=== PATIENT | female | born 1955 | race Caucasian/White ===

== ENCOUNTER 2020-01-31 19:49 | Emergency (ER) | payer MEDICARE, MEDICAID ==
[2020-01-31] MEDS ORDERED: Acetaminophen 500 MG Tab PO ONE (20:02)
--- NOTE | 2020-01-31 20:09 | EDM.PDOC ---
ED HPI GENERAL MEDICAL PROBLEM - General Chief Complaint: Respiratory Problem Stated Complaint: VIA [facility]TH Time Seen by Provider: 01/31/20 20:07 Source of Information: Reports: Patient, EMS, Old Records, RN History Limitations: Reports: No Limitations - History of Present Illness INITIAL COMMENTS - FREE TEXT/NARRATIVE: 64 yo female presents with a fever, cough and SOB. EMS got a pulse ox reading of 80% so put her on 4 liters of oxygen per [place] en route. No recent acetaminophen. Lives alone. Has a pHx of COPD. Was tested for Covid 2 days ago in the clinic, test results are pending(now positive). Says her oximeter is usually in the 92- 95% range. Quit smoking 5 yrs ago. Onset: Gradual Duration: Day(s):, Getting Worse Location: Reports: Chest, Generalized Quality: Reports: Dull Severity: Moderate Improves with: Reports: Medication Worsens with: Reports: Other (time/med wearing off) Context: Reports: Other (See HPI) Associated Symptoms: Reports: Cough, Fever/Chills, Malaise, Shortness of Breath Treatments HOT TAMALE MAN: Reports: See EMS Report, Other (see below) (none) Left Knee Pain Score (Numeric/FACES): 9 Left Middle Chest Pain Score (Numeric/FACES): 10 - Related Data Allergies Allergy/AdvReac Type Severity Reaction Status Date / Time codeine Allergy Drowsiness Verified 01/31/20 19:52 Home Meds: Home Meds Albuterol Sulfate [Proventil Hfa] 6.7 gm IH ASDIRECTED 01/31/20 [History] Albuterol [Ventolin 2 MG/5 ML] 0.4 mg PO ASDIRECTED 01/31/20 [History] Aspirin [Halfprin] 81 mg PO DAILY 01/31/20 [History] Budesonide/Formoterol [Symbicort 160-4.5 MCG] 4 puff INH BID 01/31/20 [History] Chlorthalidone 25 mg PO DAILY 01/31/20 [History] Escitalopram [Lexapro] 10 mg PO DAILY 01/31/20 [History] Levothyroxine Sodium [Synthroid] 125 mcg PO DAILY 01/31/20 [History] Potassium Chloride 10 meq PO BID #60 cap.er 01/31/20 [Rx] Past Medical History Cardiovascular History: Reports: Hypertension Respiratory History: Reports: COPD ETL INFORMATICA ARCHITECT History: Reports: Psychiatric History: Reports: Anxiety, Depression Endocrine/Metabolic History: Reports: Hypothyroidism - Past Surgical History Other Musculoskeletal Surgeries/Procedures:: L SHOULDER ROTATOR CUFF REPAIR ED ROS GENERAL - Review of Systems Review Of Systems: See Below Constitutional: Reports: Fever, Chills, Malaise HEENT: Reports: No Symptoms Respiratory: Reports: Shortness of Breath, Cough, Sputum (occasionally). Denies: Wheezing, Pleuritic Chest Pain, Hemoptysis Cardiovascular: Reports: Dyspnea on Exertion. Denies: Edema, Lightheadedness GI/Abdominal: Reports: No Symptoms : Reports: No Symptoms Musculoskeletal: Reports: No Symptoms Skin: Reports: No Symptoms Neurological: Reports: No Symptoms Psychiatric: Reports: No Symptoms ED EXAM, GENERAL - Physical Exam Exam: See Below Exam Limited By: No Limitations General Appearance: Alert, WD/WN, No Apparent Distress Eye Exam: Bilateral Eye: Normal Inspection Ears: Normal External Exam, Normal Canal, Hearing Grossly Normal Ear Exam: Bilateral Ear: Auricle Normal, Canal Normal Nose: Normal Inspection, No Blood Throat/Mouth: Normal Inspection, Normal Lips, Normal Oropharynx, Normal Voice, No Airway Compromise Head: Atraumatic, Normocephalic Neck: Normal Inspection Respiratory/Chest: No Respiratory Distress, Lungs Clear, Normal Breath Sounds, No Accessory Muscle Use Cardiovascular: Regular Rate, Rhythm, No Edema GI/Abdominal: Soft, Non-Tender Back Exam: Normal Inspection. No: CVA Tenderness (R), CVA Tenderness (L) Extremities: Normal Inspection, Normal Range of Motion, Non-Tender, No Pedal Edema Neurological: Alert, Oriented, CN II-XII Intact, Normal Cognition, No Motor/Sensory Deficits Psychiatric: Normal Affect, Normal Mood Skin Exam: Warm, Dry, Intact, Normal Color, No Rash Course - Vital Signs Last Recorded V/S: Last Vital Signs Temp 39.7 C H 01/31/20 19:55 Pulse 92 01/31/20 19:55 Resp 18 01/31/20 19:55 BP 132/73 01/31/20 19:55 Pulse Ox 98 01/31/20 19:55 - Orders/Labs/Meds Orders: Active Orders 24 hr Category Date Time Status UA W/MICROSCOPIC [URIN] Stat Lab 01/31/20 22:44 Ordered NS + KCl 20mEq/L [Normal Saline with 20 mEq KCl] 1,000 Med 01/31/20 21:00 Active ml IV ASDIRECTED Medication Orders Potassium Chloride/Sodium Chloride (Normal Saline With 20 Meq Kcl) 1,000 mls @ 1,000 mls/hr IV ASDIRECTED CRIS Last Admin: 01/31/20 21:27 Dose: 1,000 mls/hr Documented by: EDNA Labs: Laboratory Tests 01/31/20 01/31/20 01/31/20 Range/Units 20:26 20:26 20:26 WBC 8.2 (4.5-11.0) K/uL RBC 5.23 (3.30-5.50) M/uL Hgb 13.9 (12.0-15.0) g/dL Hct 45.2 (36.0-48.0) % MCV 86 (80-98) fL MCH 27 (27-31) pg MCHC 31 L (32-36) % Plt Count 170 (150-400) K/uL D-Dimer, Quantitative 324 (0.0-400.0) ng/mL Sodium 136 L (140-148) mmol/L Potassium 2.9 L* (3.6-5.2) mmol/L Chloride 95 L (100-108) mmol/L Carbon Dioxide 34 H (21-32) mmol/L Anion Gap 9.9 (5.0-14.0) mmol/L BUN 15 (7-18) mg/dL Creatinine 0.9 (0.6-1.0) mg/dL Est Cr Clr Drug Dosing 48.63 mL/min Estimated GFR (MDRD) > 60 (>60) Glucose 121 H (74-106) mg/dL Calcium 8.8 (8.5-10.1) mg/dL Magnesium (1.8-2.4) mg/dL Lactate Dehydrogenase 229 (82-234) U/L C-Reactive Protein 5.37 H (0.0-0.3) mg/dL 01/31/20 Range/Units 20:51 WBC (4.5-11.0) K/uL RBC (3.30-5.50) M/uL Hgb (12.0-15.0) g/dL Hct (36.0-48.0) % MCV (80-98) fL MCH (27-31) pg MCHC (32-36) % Plt Count (150-400) K/uL D-Dimer, Quantitative (0.0-400.0) ng/mL Sodium (140-148) mmol/L Potassium (3.6-5.2) mmol/L Chloride (100-108) mmol/L Carbon Dioxide (21-32) mmol/L Anion Gap (5.0-14.0) mmol/L BUN (7-18) mg/dL Creatinine (0.6-1.0) mg/dL Est Cr Clr Drug Dosing mL/min Estimated GFR (MDRD) (>60) Glucose (74-106) mg/dL Calcium (8.5-10.1) mg/dL Magnesium 1.8 (1.8-2.4) mg/dL Lactate Dehydrogenase (82-234) U/L C-Reactive Protein (0.0-0.3) mg/dL Meds: Medications Generic Name Dose Route Start Last Admin Trade Name Freq PRN Reason Stop Dose Admin Potassium Chloride/Sodium Chloride 1,000 mls @ 1,000 mls/hr 01/31/20 21:00 01/31/20 21:27 Normal Saline With 20 Meq Kcl IV 1,000 mls/hr ASDIRECTED CRIS Administration Discontinued Medications Generic Name Dose Route Start Last Admin Trade Name Freq PRN Reason Stop Dose Admin Acetaminophen 1,000 mg 01/31/20 20:02 01/31/20 20:23 Tylenol Extra Strength PO 01/31/20 20:03 1,000 mg ONETIME ONE Administration Aspirin 325 mg 01/31/20 21:07 01/31/20 21:38 Ecotrin PO 01/31/20 21:08 325 mg ONETIME ONE Administration Potassium Chloride 40 meq 01/31/20 20:48 01/31/20 21:29 Potassium Chloride PO 01/31/20 20:49 40 meq ONETIME ONE Administration Departure - Departure Time of Disposition: 22:55 Disposition: Home, Self-Care 01 Condition: Fair Clinical Impression: COVID-19, Hypokalemia, Exercise hypoxemia - Discharge Information *PRESCRIPTION DRUG MONITORING PROGRAM REVIEWED*: Not Applicable *COPY OF PRESCRIPTION DRUG MONITORING REPORT IN PATIENT SEEMA: Not Applicable Prescriptions: Potassium Chloride 10 meq PO BID #60 cap.er Instructions: Potassium Content of Foods, Prevent the Spread of COVID-19 if You Are Sick - CDC, COVID-19 Frequently Asked Questions Referrals: PCP,None [Primary Care Provider] - Forms: ED Department Discharge Additional Instructions: Take the potassium prescription as directed that was sent to [facility] for you. Take acetaminophen 1000 mg every 6 hrs for pain and fever control. Drink ample fluids to prevent dehydration. Isolate yourself and wash your hands often to prevent spread. Consider taking vitamin D 4000 IU daily, and Zinc 25-50 mg daily to boost your immunity. Add an enteric coated aspirin daily to prevent blood clots from Covid. Recheck in the clinic in a couple weeks to make sure your potassium level is better. We will try to get you home oxygen sometime tomorrow, use it as directed. Stay in touch with your provider regarding your condition. Sepsis Event Note (ED) - Evaluation Sepsis Screening Result: Possible Sepsis Risk - Focused Exam Vital Signs: Vital Signs Temp Pulse Resp BP Pulse Ox 01/31/20 19:55 39.7 C H 92 18 132/73 98 - My Orders Last 24 Hours: My Active Orders 01/31/20 21:00 NS + KCl 20mEq/L [Normal Saline with 20 mEq KCl] 1,000 ml IV ASDIRECTED 01/31/20 22:44 UA W/MICROSCOPIC [URIN] Stat - Assessment/Plan Last 24 Hours: My Active Orders 01/31/20 21:00 NS + KCl 20mEq/L [Normal Saline with 20 mEq KCl] 1,000 ml IV ASDIRECTED 01/31/20 22:44 UA W/MICROSCOPIC [URIN] Stat
[2020-01-31] MEDS ORDERED: Potassium Chloride 10 MEQ Cap.ER PO ONE (20:48)
[2020-01-31] MEDS ORDERED: NS + KCl 20mEq/L 1,000 ML IV SCH (21:00)
[2020-01-31] MEDS ORDERED: Aspirin 325 MG Tab.EC PO ONE (21:07)
== END 2020-01-31 23:40 | disposition home or self-care (01) ==
LOC: MERGE 19:49 → JP.ED 19:49
DX: U07.1 COVID-19 (principal); E87.6 Hypokalemia; R09.02 Hypoxemia; I10 Essential (primary) hypertension; F41.9 Anxiety disorder, unspecified; F32.9 Major depressive disorder, single episode, unspecified; E03.9 Hypothyroidism, unspecified; Z88.5 Allergy status to narcotic agent; Z79.82 Long term (current) use of aspirin; Z79.899 Other long term (current) drug therapy
CPT/HCPCS: 36415; 80048; 81001; 83615; 83735; 85027; 85379; 86140; 99284; A9270; J3480

== ENCOUNTER 2020-02-26 23:12 | Inpatient (IN) | payer MEDICARE, MEDICAID ==
[2020-02-26] MEDS ORDERED: HYDROmorphone 0.5 MG/0.5 ML Syringe IVPUSH ONE (23:36)
[2020-02-26] MEDS ORDERED: Ondansetron 4 MG/2 ML SDV IVPUSH ONE (23:36)
--- NOTE | 2020-02-26 23:41 | EDM.PDOC ---
ED HPI GENERAL MEDICAL PROBLEM - General Chief Complaint: Abdominal Pain Stated Complaint: MEDICAL VIA [facility] Time Seen by Provider: 02/26/20 23:37 Source of Information: Reports: Patient History Limitations: Reports: No Limitations - History of Present Illness INITIAL COMMENTS - FREE TEXT/NARRATIVE: pt arrived with upper abomanal pain which started 2 days ago. She had a large emesis just prior to the ambulance arriving. She has had urinary frequency but not actual burning. Onset: Gradual, Other ( last 2 days. She did have Covid 19 about 1 month ago. ) Duration: Day(s): Location: Reports: Abdomen Associated Symptoms: Reports: Loss of Appetite, Nausea/Vomiting, Weakness back Pain Score (Numeric/FACES): 8 - Related Data Allergies Allergy/AdvReac Type Severity Reaction Status Date / Time codeine Allergy Drowsiness Verified 02/26/20 23:17 Home Meds: Home Meds Albuterol Sulfate [Proventil Hfa] 6.7 gm IH TID 01/31/20 [History] Albuterol [Ventolin 2 MG/5 ML] 0.4 mg PO ASDIRECTED PRN 01/31/20 [History] Aspirin [Halfprin] 81 mg PO DAILY 01/31/20 [History] Budesonide/Formoterol [Symbicort 160-4.5 MCG] 4 puff INH BID 01/31/20 [History] Escitalopram [Lexapro] 10 mg PO DAILY 01/31/20 [History] Levothyroxine Sodium [Synthroid] 125 mcg PO DAILY 01/31/20 [History] lisinopriL [Lisinopril] 10 mg PO DAILY 02/26/20 [History] Past Medical History HEENT History: Reports: Impaired Vision Cardiovascular History: Reports: Hypertension Respiratory History: Reports: COPD Gastrointestinal History: Reports: GERD IOS ARCHITECT History: Reports: Psychiatric History: Reports: Anxiety, Depression Endocrine/Metabolic History: Reports: Hypothyroidism, Obesity/BMI 30+ - Infectious Disease History Infectious Disease History: Reports: Chicken Pox, Novel Coronavirus - Past Surgical History GI Surgical History: Reports: Colonoscopy Other Musculoskeletal Surgeries/Procedures:: L SHOULDER ROTATOR CUFF REPAIR Social & Family History - Tobacco Use Tobacco Use Status *Q: Former Tobacco User Used Tobacco, but Quit: Yes Month/Year Tobacco Last Used: 2014 - Caffeine Use Caffeine Use: Reports: Coffee - Recreational Drug Use Recreational Drug Use: No ED ROS GENERAL - Review of Systems Review Of Systems: See Below Constitutional: Reports: Weakness, Decreased Appetite HEENT: Reports: No Symptoms Respiratory: Reports: No Symptoms Cardiovascular: Reports: No Symptoms Endocrine: Reports: Fatigue GI/Abdominal: Reports: Abdominal Pain, Decreased Appetite, Nausea, Vomiting : Reports: Frequency Musculoskeletal: Reports: No Symptoms Skin: Reports: No Symptoms Neurological: Reports: No Symptoms ED EXAM, GI/ABD - Physical Exam Exam: See Below Text/Narrative:: pt arrived with a 2 day history of upper abdomanal pain. This became very severe tonight and she called the ambulance. She is slightly more comfortable at this point. She did vomit just prior to the ambulance getting there. Exam Limited By: No Limitations General Appearance: Alert, Anxious, Moderate Distress Ears: Normal TMs Nose: Normal Inspection Throat/Mouth: Other (mucouis membranes appear dry. ) Head: Atraumatic Neck: Normal Inspection Respiratory/Chest: No Respiratory Distress Cardiovascular: Regular Rate, Rhythm GI/Abdominal Exam: Other (pt is very tender in the upper abdoman,. ) (Female) Exam: Deferred Rectal (Female) Exam: Deferred Back Exam: Normal Inspection Extremities: Normal Inspection Neurological: Alert, Oriented, Normal Cognition Psychiatric: Anxious Course - Vital Signs Last Recorded V/S: Last Vital Signs Temp 36.4 C 02/26/20 23:14 Pulse 98 02/26/20 23:14 Resp 20 02/26/20 23:14 BP 124/57 L 02/26/20 23:14 Pulse Ox 94 L 02/26/20 23:14 - Orders/Labs/Meds Orders: Active Orders 24 hr Category Date Time Status Abdomen Ltd [US] Stat Exams 02/27/20 00:20 Ordered Chest 1V Frontal [CR] Stat Exams 02/27/20 00:23 Taken CORONAVIRUS COVID-19 [facility] [MOLEC] Stat Lab 02/27/20 01:03 Received Sodium Chloride 0.9% [Normal Saline] 1,000 ml Med 02/26/20 23:45 Active IV ASDIRECTED Medication Orders Sodium Chloride (Normal Saline) 1,000 mls @ 500 mls/hr IV ASDIRECTED CRIS Last Admin: 02/26/20 23:53 Dose: 500 mls/hr Documented by: KATHERINE Labs: Laboratory Tests 02/26/20 02/26/20 02/26/20 Range/Units 23:35 23:56 23:56 WBC 13.4 H (4.5-11.0) K/uL RBC 5.24 (3.30-5.50) M/uL Hgb 14.5 (12.0-15.0) g/dL Hct 46.4 (36.0-48.0) % MCV 89 (80-98) fL MCH 28 (27-31) pg MCHC 31 L (32-36) % Plt Count 220 (150-400) K/uL Neut % (Auto) 87 H (36-66) % Lymph % (Auto) 6 L (24-44) % [place] % (Auto) 6 (2-6) % Eos % (Auto) 1 L (2-4) % Baso % (Auto) 0 (0-1) % PT (9.5-12.0) sec INR (0.80-1.20) Sodium 138 L (140-148) mmol/L Potassium 3.4 L (3.6-5.2) mmol/L Chloride 96 L (100-108) mmol/L Carbon Dioxide 33 H (21-32) mmol/L Anion Gap 12.4 (5.0-14.0) mmol/L BUN 16 (7-18) mg/dL Creatinine 0.9 (0.6-1.0) mg/dL Est Cr Clr Drug Dosing 48.63 mL/min Estimated GFR (MDRD) > 60 (>60) Glucose 157 H (74-106) mg/dL Calcium 9.4 (8.5-10.1) mg/dL Total Bilirubin 2.2 H (0.2-1.0) mg/dL AST 840 H (15-37) U/L ALT 955 H (12-78) U/L Alkaline Phosphatase 228 H (46-116) U/L Total Protein 8.3 H (6.4-8.2) g/dL Albumin 3.9 (3.4-5.0) g/dL Globulin 4.4 H (2.3-3.5) g/dL Albumin/Globulin Ratio 0.9 L (1.2-2.2) Amylase 1082 H (25-115) U/L Lipase 26113 H (73-393) U/L Urine Color (YELLOW) Urine Appearance (CLEAR) Urine pH (5.0-8.0) Ur Specific [place] (1.008-1.030) Urine Protein (NEGATIVE) mg/dL Urine Glucose (UA) (NEGATIVE) mg/dL Urine Ketones (NEGATIVE) mg/dL Urine Occult Blood (NEGATIVE) Urine Nitrite (NEGATIVE) Urine Bilirubin (NEGATIVE) Urine Urobilinogen (0.2-1.0) EU/dL Ur Leukocyte Esterase (NEGATIVE) Urine RBC (0-5) Urine WBC (0-5) Ur Epithelial Cells Amorphous Sediment Urine Bacteria Urine Mucus 02/27/20 02/27/20 Range/Units 00:15 00:59 WBC (4.5-11.0) K/uL RBC (3.30-5.50) M/uL Hgb (12.0-15.0) g/dL Hct (36.0-48.0) % MCV (80-98) fL MCH (27-31) pg MCHC (32-36) % Plt Count (150-400) K/uL Neut % (Auto) (36-66) % Lymph % (Auto) (24-44) % [place] % (Auto) (2-6) % Eos % (Auto) (2-4) % Baso % (Auto) (0-1) % PT 10.7 (9.5-12.0) sec INR 0.98 (0.80-1.20) Sodium (140-148) mmol/L Potassium (3.6-5.2) mmol/L Chloride (100-108) mmol/L Carbon Dioxide (21-32) mmol/L Anion Gap (5.0-14.0) mmol/L BUN (7-18) mg/dL Creatinine (0.6-1.0) mg/dL Est Cr Clr Drug Dosing mL/min Estimated GFR (MDRD) (>60) Glucose (74-106) mg/dL Calcium (8.5-10.1) mg/dL Total Bilirubin (0.2-1.0) mg/dL AST (15-37) U/L ALT (12-78) U/L Alkaline Phosphatase (46-116) U/L Total Protein (6.4-8.2) g/dL Albumin (3.4-5.0) g/dL Globulin (2.3-3.5) g/dL Albumin/Globulin Ratio (1.2-2.2) Amylase (25-115) U/L Lipase (73-393) U/L Urine Color [place] A (YELLOW) Urine Appearance Clear (CLEAR) Urine pH 7.0 (5.0-8.0) Ur Specific [place] 1.025 (1.008-1.030) Urine Protein Negative (NEGATIVE) mg/dL Urine Glucose (UA) Negative (NEGATIVE) mg/dL Urine Ketones Negative (NEGATIVE) mg/dL Urine Occult Blood Negative (NEGATIVE) Urine Nitrite Negative (NEGATIVE) Urine Bilirubin Negative (NEGATIVE) Urine Urobilinogen 0.2 (0.2-1.0) EU/dL Ur Leukocyte Esterase Trace H (NEGATIVE) Urine RBC Not seen (0-5) Urine WBC 0-5 (0-5) Ur Epithelial Cells Many Amorphous Sediment Few Urine Bacteria Not seen Urine Mucus Not seen Meds: Medications Generic Name Dose Route Start Last Admin Trade Name Freq PRN Reason Stop Dose Admin Sodium Chloride 1,000 mls @ 500 mls/hr 02/26/20 23:45 02/26/20 23:53 Normal Saline IV 500 mls/hr ASDIRECTED CRIS Administration Discontinued Medications Generic Name Dose Route Start Last Admin Trade Name Freq PRN Reason Stop Dose Admin Hydromorphone HCl 0.5 mg 02/26/20 23:36 02/26/20 23:58 Dilaudid IVPUSH 02/26/20 23:37 0.5 mg ONETIME ONE Administration Ondansetron HCl 4 mg 02/26/20 23:36 02/26/20 23:56 Zofran IVPUSH 02/26/20 23:37 4 mg ONETIME ONE Administration - Re-Assessments/Exams Free Text/Narrative Re-Assessment/Exam: 02/27/20 01:09 pt has a markedly elevated lipase and her liver enzymes are very elevated. She is mildly jaundiced. pt has concentrated urine which does not look infected. She did have Covid 1 month ago. Pt had fluids started and she was given zoforan and dilaudid .5. 02/27/20 01:43 us shows some slug but no definite stones. Her common duct is not wide. 02/27/20 01:47 Departure - Departure Time of Disposition: 01:48 Disposition: Admitted As Inpatient 64 Condition: Fair Clinical Impression: Pancreatitis, Dehydration - Discharge Information Referrals: PCP,None [Primary Care Provider] - Forms: ED Department Discharge Care Plan Goals: admit to Dr Carr. Sepsis Event Note (ED) - Evaluation Sepsis Screening Result: No Definite Risk - Focused Exam Vital Signs: Vital Signs Temp Pulse Resp BP Pulse Ox 02/26/20 23:14 36.4 C 98 20 124/57 L 94 L - My Orders Last 24 Hours: My Active Orders 02/26/20 23:45 Sodium Chloride 0.9% [Normal Saline] 1,000 ml IV ASDIRECTED 02/27/20 00:20 Abdomen Ltd [US] Stat 02/27/20 00:23 Chest 1V Frontal [CR] Stat 02/27/20 01:03 CORONAVIRUS COVID-19 [facility] [[facility]LEC] Stat - Assessment/Plan Last 24 Hours: My Active Orders 02/26/20 23:45 Sodium Chloride 0.9% [Normal Saline] 1,000 ml IV ASDIRECTED 02/27/20 00:20 Abdomen Ltd [US] Stat 02/27/20 00:23 Chest 1V Frontal [CR] Stat 02/27/20 01:03 CORONAVIRUS COVID-19 [facility] [MOLEC] Stat
[2020-02-26] MEDS ORDERED: Sodium Chloride 0.9% 1,000 ML IV SCH (23:45)
--- NOTE | 2020-02-27 01:59 | CRLUS ---
INDICATION: Upper abdominal pain TECHNIQUE: Ultrasound abdomen limited. Sonographic images of the right upper quadrant were obtained using douglas-scale and color Doppler images. COMPARISON: None FINDINGS: Liver: Mild fatty infiltration of the liver is noted with focal fatty sparing near the gallbladder fossa. Gallbladder: Small amount of sludge is present within the gallbladder. The neck of the gallbladder is not well demonstrated. The gallbladder wall is normal in appearance. No pericholecystic fluid is present. No sonographic Mathias sign is present. Common bile duct: 5 mm. No intrahepatic biliary ductal dilatation seen. Pancreas: The visualized portions of the pancreatic head and body are normal in appearance. Right Kidney: 12 cm. No hydronephrosis or ureterectasis is seen. Vascular: The visualized abdominal aorta and IVC are unremarkable. The visualized portal vein is patent with normal anterograde flow. IMPRESSION: 1. Small amount of sludge is present within the gallbladder. Dictated by Praful Perez MD @ 02/27/2020 1:59:10 AM Dictated by: Praful Perez MD @ 02/27/2020 01:59:15 (Electronically Signed)
[2020-02-27] MEDS ORDERED: Sodium Chloride 0.9% 1,000 ML IV SCH (02:00)
[2020-02-27] MEDS ORDERED: Promethazine 12.5 MG in Sodium Chloride 0.9% 50 ML IV PRN (02:28)
[2020-02-27] MEDS ORDERED: Ondansetron 4 MG/2 ML SDV IV PRN (02:28)
[2020-02-27] MEDS ORDERED: Lactated Ringers 1,000 ML IV SCH (02:30)
[2020-02-27] MEDS ORDERED: HYDROmorphone 0.5 MG/0.5 ML Syringe IVPUSH PRN (02:41)
[2020-02-27] MEDS ORDERED: Albuterol/Ipratropium 4 GM Inhalation Spray INH PRN (02:45)
--- NOTE | 2020-02-27 02:54 | PCM.HP.2 ---
H&P History of Present Illness - General Date of Service: 02/27/20 Admit Problem/Dx: Admission Diagnosis/Problem Admission Diagnosis/Problem Pancreatitis Source of Information: Patient History Limitations: Reports: No Limitations - History of Present Illness Initial Comments - Free Text/Narative: Patient is a 64yo female with PMH of COPD, hypothyroidism, obesity, who was fo und to be COVID positive 1 month ago, who presents to the ED overnight for acute worsening abdominal pain with some vomiting. She has been having the pain since yesterday and it got worse to the point that she threw up and said that she could not stand it so she called 911. She was found by the ER to have acute pancreatitis. It is suspected to be gallstone pancreatitis but there was no obstructing stone seen on imaging. Patient says she does not drink alcohol and she has never had pancreatitis in the past. She says the dilaudid is helping her pain and her nausea has improved with fluids and zofran. She has been needing O2 since her initial positive test for covid. Onset of Symptoms: Reports: Sudden Symptom Onset Date: 02/26/20 Duration of Symptoms: Reports: Hour(s): Location: Reports: Abdomen Quality: Reports: Sharp, Stabbing Severity: Severe Improves with: Reports: Medication, Other (NPO) Worsens with: Reports: Eating Associated Symptoms: Reports: No Other Symptoms back Pain Score (Numeric/FACES): 8 - Related Data Allergies/Adverse Reactions: Allergies Allergy/AdvReac Type Severity Reaction Status Date / Time codeine Allergy Drowsiness Verified 02/26/20 23:17 Home Medications: Home Meds Albuterol Sulfate [Proventil Hfa] 6.7 gm IH TID 01/31/20 [History] Albuterol [Ventolin 2 MG/5 ML] 0.4 mg PO ASDIRECTED PRN 01/31/20 [History] Aspirin [Halfprin] 81 mg PO DAILY 01/31/20 [History] Budesonide/Formoterol [Symbicort 160-4.5 MCG] 4 puff INH BID 01/31/20 [History] Escitalopram [Lexapro] 10 mg PO DAILY 01/31/20 [History] Levothyroxine Sodium [Synthroid] 125 mcg PO DAILY 01/31/20 [History] lisinopriL [Lisinopril] 10 mg PO DAILY 02/26/20 [History] Past Medical History HEENT History: Reports: Impaired Vision Cardiovascular History: Reports: Hypertension Respiratory History: Reports: COPD Gastrointestinal History: Reports: GERD [employer] History: Reports: Psychiatric History: Reports: Anxiety, Depression Endocrine/Metabolic History: Reports: Hypothyroidism, Obesity/BMI 30+ - Infectious Disease History Infectious Disease History: Reports: Chicken Pox, Novel Coronavirus - Past Surgical History GI Surgical History: Reports: Colonoscopy Other Musculoskeletal Surgeries/Procedures:: L SHOULDER ROTATOR CUFF REPAIR Social & Family History - Tobacco Use Tobacco Use Status *Q: Former Tobacco User Used Tobacco, but Quit: Yes Month/Year Tobacco Last Used: 2014 - Caffeine Use Caffeine Use: Reports: Coffee - Recreational Drug Use Recreational Drug Use: No H&P Review of Systems - Review of Systems: Review Of Systems: See Below General: Reports: Decreased Appetite. Denies: Fever, Chills, Malaise, Weakness, Fatigue HEENT: Reports: No Symptoms Pulmonary: Reports: Shortness of Breath (COPD), Wheezing (COPD) Cardiovascular: Reports: No Symptoms Gastrointestinal: Reports: Abdominal Pain, Decreased Appetite Genitourinary: Reports: No Symptoms Musculoskeletal: Reports: No Symptoms Skin: Reports: No Symptoms Psychiatric: Reports: No Symptoms Neurological: Reports: No Symptoms Hematologic/Lymphatic: Reports: No Symptoms Immunologic: Reports: No Symptoms Exam - Exam Exam: See Below - Vital Signs Vital Signs: Last Vital Signs Temp 36.4 C 02/26/20 23:14 Pulse 104 H 02/27/20 02:12 Resp 18 02/27/20 02:12 BP 117/50 L 02/27/20 02:12 Pulse Ox 91 L 02/27/20 02:19 Weight: 96.162 kg - Exam General: Alert, Oriented, 4 HEENT: PERRLA, Hearing Intact, Mucosa Moist & [place], Nares Patent, Normal Nasal Septum, Posterior Pharynx Clear, Conjunctiva Clear, EOMI, EACs Clear, TMs Clear Neck: Supple, Trachea Midline, 2 Lungs: Clear to Auscultation, Normal Respiratory Effort Cardiovascular: Regular Rate, Regular Rhythm GI/Abdominal Exam: Normal Bowel Sounds, Soft, No Distention, Tender. No: Non- Tender (Female) Exam: Deferred Rectal (Female) Exam: Deferred Back Exam: Normal Inspection, Full Range of Motion, NT Extremities: Normal Inspection, Normal Range of Motion, Non-Tender, No Pedal Edema, Normal Capillary Refill Skin: Warm, Dry, Intact Neurological: Cranial Nerves Intact, Reflexes Equal Bilateral Neuro Extensive - Mental Status: Alert, Oriented x3, Normal Mood/Affect, Normal Cognition Neuro Extensive - Motor, Sensory, Reflexes: CN II-XII Intact, Normal Gait, Normal Reflexes Psychiatric: Alert, Normal Affect, Normal Mood - Patient Data Lab Results Last 24 hrs: Laboratory Results - last 24 hr 02/26/20 02/26/20 02/26/20 Range/Units 23:35 23:56 23:56 WBC 13.4 H (4.5-11.0) K/uL RBC 5.24 (3.30-5.50) M/uL Hgb 14.5 (12.0-15.0) g/dL Hct 46.4 (36.0-48.0) % MCV 89 (80-98) fL MCH 28 (27-31) pg MCHC 31 L (32-36) % Plt Count 220 (150-400) K/uL Neut % (Auto) 87 H (36-66) % Lymph % (Auto) 6 L (24-44) % [place] % (Auto) 6 (2-6) % Eos % (Auto) 1 L (2-4) % Baso % (Auto) 0 (0-1) % PT (9.5-12.0) sec INR (0.80-1.20) Sodium 138 L (140-148) mmol/L Potassium 3.4 L (3.6-5.2) mmol/L Chloride 96 L (100-108) mmol/L Carbon Dioxide 33 H (21-32) mmol/L Anion Gap 12.4 (5.0-14.0) mmol/L BUN 16 (7-18) mg/dL Creatinine 0.9 (0.6-1.0) mg/dL Est Cr Clr Drug Dosing 48.63 mL/min Estimated GFR (MDRD) > 60 (>60) Glucose 157 H (74-106) mg/dL Calcium 9.4 (8.5-10.1) mg/dL Total Bilirubin 2.2 H (0.2-1.0) mg/dL AST 840 H (15-37) U/L ALT 955 H (12-78) U/L Alkaline Phosphatase 228 H (46-116) U/L Total Protein 8.3 H (6.4-8.2) g/dL Albumin 3.9 (3.4-5.0) g/dL Globulin 4.4 H (2.3-3.5) g/dL Albumin/Globulin Ratio 0.9 L (1.2-2.2) Amylase 1082 H (25-115) U/L Lipase 24505 H (73-393) U/L Urine Color (YELLOW) Urine Appearance (CLEAR) Urine pH (5.0-8.0) Ur Specific [place] (1.008-1.030) Urine Protein (NEGATIVE) mg/dL Urine Glucose (UA) (NEGATIVE) mg/dL Urine Ketones (NEGATIVE) mg/dL Urine Occult Blood (NEGATIVE) Urine Nitrite (NEGATIVE) Urine Bilirubin (NEGATIVE) Urine Urobilinogen (0.2-1.0) EU/dL Ur Leukocyte Esterase (NEGATIVE) Urine RBC (0-5) Urine WBC (0-5) Ur Epithelial Cells Amorphous Sediment Urine Bacteria Urine Mucus SARS-CoV-2 RNA ([facility]HELLEY) (NEGATIVE) 02/27/20 02/27/20 02/27/20 Range/Units 00:15 00:59 01:03 WBC (4.5-11.0) K/uL RBC (3.30-5.50) M/uL Hgb (12.0-15.0) g/dL Hct (36.0-48.0) % MCV (80-98) fL MCH (27-31) pg MCHC (32-36) % Plt Count (150-400) K/uL Neut % (Auto) (36-66) % Lymph % (Auto) (24-44) % [place] % (Auto) (2-6) % Eos % (Auto) (2-4) % Baso % (Auto) (0-1) % PT 10.7 (9.5-12.0) sec INR 0.98 (0.80-1.20) Sodium (140-148) mmol/L Potassium (3.6-5.2) mmol/L Chloride (100-108) mmol/L Carbon Dioxide (21-32) mmol/L Anion Gap (5.0-14.0) mmol/L BUN (7-18) mg/dL Creatinine (0.6-1.0) mg/dL Est Cr Clr Drug Dosing mL/min Estimated GFR (MDRD) (>60) Glucose (74-106) mg/dL Calcium (8.5-10.1) mg/dL Total Bilirubin (0.2-1.0) mg/dL AST (15-37) U/L ALT (12-78) U/L Alkaline Phosphatase (46-116) U/L Total Protein (6.4-8.2) g/dL Albumin (3.4-5.0) g/dL Globulin (2.3-3.5) g/dL Albumin/Globulin Ratio (1.2-2.2) Amylase (25-115) U/L Lipase (73-393) U/L Urine Color [place] A (YELLOW) Urine Appearance Clear (CLEAR) Urine pH 7.0 (5.0-8.0) Ur Specific [place] 1.025 (1.008-1.030) Urine Protein Negative (NEGATIVE) mg/dL Urine Glucose (UA) Negative (NEGATIVE) mg/dL Urine Ketones Negative (NEGATIVE) mg/dL Urine Occult Blood Negative (NEGATIVE) Urine Nitrite Negative (NEGATIVE) Urine Bilirubin Negative (NEGATIVE) Urine Urobilinogen 0.2 (0.2-1.0) EU/dL Ur Leukocyte Esterase Trace H (NEGATIVE) Urine RBC Not seen (0-5) Urine WBC 0-5 (0-5) Ur Epithelial Cells Many Amorphous Sediment Few Urine Bacteria Not seen Urine Mucus Not seen SARS-CoV-2 RNA (SHELLEY) Positive H (NEGATIVE) Result Diagrams: 02/26/20 23:35 02/26/20 23:56 Sepsis Event Note - Evaluation Sepsis Screening Result: No Definite Risk - Focused Exam Vital Signs: Vital Signs Temp Pulse Resp BP Pulse Ox 02/27/20 02:19 91 L 02/27/20 02:12 104 H 18 117/50 L 84 L 02/26/20 23:14 36.4 C 98 20 124/57 L 94 L - Problem List (1) Pancreatitis SNOMED Code(s): 35268245 ICD Code: K85.90 - ACUTE PANCREATITIS WITHOUT NECROSIS OR INFECTION, UNSP Status: Acute Priority: High Current Visit: Yes Onset Date: ~02/27/20 Problem Details: Will keep patient NPO at this time. Will manage pain and run LR at 250cc/hr. Protonix ordered and repeat labs in AM. Patient may benefit from HIDA scan in AM if symptoms and labs are not improving. Patient's US shows sludge but no definitive obstruction. Patient alerted to the possibility of requiring transfer to ICU or outside facility if her symptoms worsen. Qualifiers: Chronicity: acute Pancreatitis type: biliary Acute pancreatitis complication: no infection or necrosis Qualified Code(s): K85.10 - Biliary a cute pancreatitis without necrosis or infection (2) COVID-19 SNOMED Code(s): 896909401 ICD Code: U07.1 - COVID-19 Status: Acute Priority: High Current Visit: Yes Onset Date: ~01/29/20 Problem Details: Patient is positive from a month ago and still requiring O2 to maintain sats above 90% at night (3) COPD (chronic obstructive pulmonary disease) SNOMED Code(s): 98939133 ICD Code: J44.9 - CHRONIC OBSTRUCTIVE PULMONARY DISEASE, UNSPECIFIED Status: Chronic Current Visit: Yes Problem Details: Will order inhalers for patient to treat COPD and COVID symptoms as needed Qualifiers: COPD type: chronic bronchitis Chronic bronchitis type: simple Qualified Code(s): J41.0 - Simple chronic bronchitis (4) Hypothyroidism SNOMED Code(s): 26164706 ICD Code: E03.9 - HYPOTHYROIDISM, UNSPECIFIED Status: Acute Current Visit: Yes Problem Details: Will restart her medication levothyroxine 125 Qualifiers: Hypothyroidism type: unspecified Qualified Code(s): E03.9 - Hypothyroidism, unspecified (5) Essential hypertension SNOMED Code(s): 15231364 ICD Code: I10 - ESSENTIAL (PRIMARY) HYPERTENSION Status: Chronic Current Visit: No Problem Details: Will continue lisinopril 10mg, patient's chlorthalidone DC'd due to hypokalemia Problem List Initiated/Reviewed/Updated: Yes Orders Last 24hrs: Active Orders 24 hr Category Date Time Status Patient Status [ADT] Routine ADT 02/27/20 02:28 Ordered Oxygen Therapy [RC] PRN Care 02/27/20 02:28 Ordered Pulse Oximetry [RC] CONTINUOUS Care 02/27/20 02:31 Ordered RT Post Treatment Assessment [RC] Click to Edit Care 02/27/20 02:45 Ordered VTE/DVT Education [RC] Per Unit Routine Care 02/27/20 02:28 Ordered Vital Signs [RC] Q4H Care 02/27/20 02:28 Ordered NPO Now [Nothing per Oral Now Diet] [DIET] Diet 02/27/20 Breakfast Ordered Chest 1V Frontal [CR] Stat Exams 02/27/20 00:23 Taken C-REACTIVE PROTEIN [CHEM] AM Lab 02/27/20 05:11 Ordered COMPREHENSIVE METABOLIC PN,CMP [CHEM] AM Lab 02/27/20 05:11 Ordered MAGNESIUM [CHEM] AM Lab 02/27/20 05:11 Ordered Albuterol [Ventolin HFA] Med 02/27/20 02:45 Ordered 2 gm INH Q2H PRN Albuterol/Ipratropium [Combivent Respimat] Med 02/27/20 02:45 Ordered 2 gm INH Q4H PRN Escitalopram [Lexapro] Med 02/27/20 09:00 Ordered 10 mg PO DAILY HYDROmorphone [Dilaudid] Med 02/27/20 02:41 Ordered 0.5 mg IVPUSH Q4H PRN Lactated Ringers [Ringers, Lactated] 1,000 ml Med 02/27/20 02:30 Ordered IV ASDIRECTED Levothyroxine [Synthroid] Med 02/27/20 07:30 Ordered 125 mcg PO ACBREAKFAST Mometasone/Formoterol [Dulera 200-5 MCG] Med 02/27/20 09:00 Ordered 2 puff IH BID Ondansetron [Zofran] Med 02/27/20 02:28 Ordered 4 mg IV Q4H PRN Pantoprazole [ProTONIX IV] Med 02/27/20 02:30 Ordered 40 mg IV Q12H Promethazine [Phenergan] 12.5 mg Med 02/27/20 02:28 Ordered Sodium Chloride 0.9% [Normal Saline] 50 ml IV Q6H Sodium Chloride 0.9% [Normal Saline] 1,000 ml Med 02/26/20 23:45 Active IV ASDIRECTED Sodium Chloride 0.9% [Normal Saline] 1,000 ml Med 02/27/20 02:00 Active IV ASDIRECTED lisinopriL [Prinivil] Med 02/27/20 09:00 Ordered 10 mg PO DAILY Resuscitation Status Routine Resus Stat 02/27/20 02:28 Ordered Medication Orders Albuterol (Ventolin Hfa) 2 gm INH Q2H PRN PRN Reason: Wheezing Albuterol/Ipratropium (Combivent Respimat) 2 gm INH Q4H PRN PRN Reason: Dyspnea Escitalopram Oxalate (Lexapro) 10 mg PO DAILY [facility] Hydromorphone HCl (Dilaudid) 0.5 mg IVPUSH Q4H PRN PRN Reason: Pain Sodium Chloride (Normal Saline) 1,000 mls @ 500 mls/hr IV ASDIRECTED [facility] Last Admin: 02/26/20 23:53 Dose: 500 mls/hr Documented by: KATHERINE Sodium Chloride (Normal Saline) 1,000 mls @ 500 mls/hr IV ASDIRECTED [facility] Last Admin: 02/27/20 02:03 Dose: 500 mls/hr Documented by: KATHERINE Promethazine HCl 12.5 mg/ (Sodium Chloride) 50.5 mls @ 200 mls/hr IV Q6H PRN PRN Reason: Nausea/Vomiting Lactated Ringer's (Ringers, Lactated) 1,000 mls @ 250 mls/hr IV ASDIRECTED [facility] Levothyroxine Sodium (Synthroid) 125 mcg PO ACBREAKFAST [facility] Lisinopril (Prinivil) 10 mg PO DAILY [facility] Mometasone Furoate/Formoterol Fumar (Dulera 200-5 Mcg) 2 puff IH BID [facility] Ondansetron HCl (Zofran) 4 mg IV Q4H PRN PRN Reason: Nausea/Vomiting Pantoprazole Sodium (Protonix Iv) 40 mg IV Q12H [facility] Resuscitation Status 02/27/20 02:28 Resuscitation Status Routine Resuscitation Status: Full Code Abbreviations used in this policy: *Cardiopulmonary Resuscitation (CPR) *Do Not Resuscitate (DNR) *Do Not Intubate (DNI) Code status categories recognized at [facility] 1. Full Code a. If a patient experiences cardiac or respiratory arrest, all resuscitation efforts (including CPR, defibrillation, and airway management) will be performed. b. Patients without a specific code status order other than Full Code will be assumed to be Full Code Status. Intubation CPR Defibrillation YES YES YES 2. DNR a. If there are changes in the patients' vital signs and condition, including respiratory arrest, treatment with medications and intubation, if indicated will be performed. b. If a patient experiences cardiac arrest, resuscitation efforts (CPR and Defibrillation) will not be performed. Intubation CPR Defibrillation YES NO NO 3. DNR/DNI a. If there are changes in the patient's vital signs and condition, including respiratory arrest, treatment with medications and noninvasive airway management/positive pressure ventilation, if indicated will be performed b. If a patient experiences a cardiac arrest, resuscitation efforts (including CPR, defibrillation and intubation) will not be performed. Intubation CPR Defibrillation NO NO NO 4. DNR/DNI/Comfort Measures a. All medical and nursing interventions will be for the sole purpose of providing pain/symptom management for the patient. b. If a patient experiences a cardiac or respiratory arrest, resuscitation efforts (including CPR, defibrillation and intubation) will not be performed. Intubation CPR Defibrillation No NO NO ACTIVE MED ORDERS Generic Name Dose Route Start Last Admin Trade Name Freq PRN Reason Stop Dose Admin Albuterol 0 gm 02/27/20 02:45 Ventolin Hfa INH Q2H PRN Wheezing Albuterol/Ipratropium 0 gm 02/27/20 02:45 Combivent Respimat INH Q4H PRN Dyspnea Escitalopram Oxalate 10 mg 02/27/20 09:00 Lexapro PO DAILY [facility] Hydromorphone HCl 0.5 mg 02/27/20 02:41 Dilaudid IVPUSH Q4H PRN Pain Sodium Chloride 1,000 mls @ 500 mls/hr 02/26/20 23:45 02/26/20 23:53 Normal Saline IV 500 mls/hr ASDIRECTED [facility] Administration Sodium Chloride 1,000 mls @ 500 mls/hr 02/27/20 02:00 02/27/20 02:03 Normal Saline IV 500 mls/hr ASDIRECTED [facility] Administration Promethazine HCl 12.5 mg/ 50.5 mls @ 200 mls/hr 02/27/20 02:28 Sodium Chloride IV Q6H PRN Nausea/Vomiting Lactated Ringer's 1,000 mls @ 250 mls/hr 02/27/20 02:30 Ringers, Lactated IV ASDIRECTED [facility] Levothyroxine Sodium 125 mcg 02/27/20 07:30 Synthroid PO ACBREAKFAST [facility] Lisinopril 10 mg 02/27/20 09:00 Prinivil PO DAILY [facility] Mometasone Furoate/Formoterol Fumar 2 puff 02/27/20 09:00 Dulera 200-5 Mcg IH BID [facility] Ondansetron HCl 4 mg 02/27/20 02:28 Zofran IV Q4H PRN Nausea/Vomiting Pantoprazole Sodium 40 mg 02/27/20 02:30 02/27/20 03:03 Protonix Iv IV 40 mg Q12H [facility] Administration ACTIVE NON-MED ORDERS/Dietary 02/27/20 Breakfast NPO Now [Nothing per Oral Now Diet] [DIET] NPO Level: Except Medications ACTIVE NON-MED ORDERS/Care 02/27/20 02:28 Oxygen Therapy [RC] PRN Maintain SpO2% greater than: 92 Oxygen Therapy Mode, Primary: Nasal Cannula Oxygen Flow Rate (L/min): 1.5 Oxygen Therapy Mode, Secondary: Nasal Cannula Flow Rate (L/min), Secondary: 4 VTE/DVT Education [RC] Per Unit Routine Vital Signs [RC] Q4H 02/27/20 02:31 Pulse Oximetry [RC] CONTINUOUS 02/27/20 02:45 RT Post Treatment Assessment [RC] Click to Edit ACTIVE NON-MED ORDERS/Orderable Interventions Education: VTE/DVT Topics Start: 02/27/20 02:28 Freq: Per Unit Routine Status: Active Protocol: Oxygen Therapy Start: 02/27/20 02:28 Freq: PRN Status: Active Protocol: Pulse Oximetry Start: 02/27/20 02:31 Freq: CONTINUOUS Status: Active Protocol: RT Post Treatment Assessment Start: 02/27/20 02:45 Text: Status: Active Freq: Click to Edit Protocol: Vital Signs Start: 02/27/20 02:28 Text: Click to edit a change in frequency and times. Status: Active Freq: Q4H Protocol: VS.PEDS ACTIVE NON-MED ORDERS/Imaging and X-Ray 02/27/20 00:23 Chest 1V Frontal [CR] Stat Is Patient : Mode Of Transportation: Portable Reason For Exam: copd, sob. ACTIVE NON-MED ORDERS/LAB 02/27/20 05:11 C-REACTIVE PROTEIN [CHEM] AM Comment: Specimen: Send someone from the department to collect CBC WITH AUTO DIFF [HEME] AM Specimen: Send someone from the department to collect Comment: COMPREHENSIVE METABOLIC PN,CMP [CHEM] AM Comment: Specimen: Send someone from the department to collect LIPASE [CHEM] AM Specimen: Send someone from the department to collect Comment: LIPID PANEL [CHEM] AM Specimen: Send someone from the department to collect Comment: MAGNESIUM [CHEM] AM Comment: Specimen: Send someone from the department to collect ACTIVE ORDERS/MEDS 02/26/20 23:45 Sodium Chloride 0.9% [Normal Saline] 1,000 ml IV ASDIRECTED 02/27/20 02:00 Sodium Chloride 0.9% [Normal Saline] 1,000 ml IV ASDIRECTED 02/27/20 02:28 Ondansetron [Zofran] 4 mg IV Q4H PRN Promethazine [Phenergan] 12.5 mg Sodium Chloride 0.9% [Normal Saline] 50 ml IV Q6H 02/27/20 02:30 Lactated Ringers [Ringers, Lactated] 1,000 ml IV ASDIRECTED Pantoprazole [ProTONIX IV] 40 mg IV Q12H 02/27/20 02:41 HYDROmorphone [Dilaudid] 0.5 mg IVPUSH Q4H PRN 02/27/20 02:45 Albuterol [Ventolin HFA] 2 gm INH Q2H PRN Albuterol/Ipratropium [Combivent Respimat] 2 gm INH Q4H PRN 02/27/20 07:30 Levothyroxine [Synthroid] 125 mcg PO ACBREAKFAST 02/27/20 09:00 Escitalopram [Lexapro] 10 mg PO DAILY Mometasone/Formoterol [Dulera 200-5 MCG] 2 puff IH BID lisinopriL [Prinivil] 10 mg PO DAILY ACTIVE NON-MED ORDERS/Other 02/27/20 02:28 Patient Status [ADT] Routine Patient Status: Admit to Inpatient Admission Diagnosis/Problem: Pancreatitis Reason for Admit: pancreatitis Nurse Unit Type: Medical-Surgical Location Preference: med-surg Admitting Physician: Sarah Carr Attending Physician: Roscoe Rodas Medicare 96 Hour Certification Statement: This Patient is Admitted for Inpatient Services and is Medically Appropriate and Meets Medical Necessity for Inpatient Admission. I Reasonably Expect the Patient will Require Inpatient Services that Span a Period of Over 2 Midnights. My Rationale for Medically Necessary Inpatient Care will be Found in the Admission History & Physical and Progress Notes. I Reasonably Expect the Patient to be Discharged or Transferred within 96 Hours After Admission to this Critical [facility] Hospital. Provider Acknowledgement/Certification: Sarah Carr - Mortality Measure Prognosis:: Good
[2020-02-27] MEDS: Pantoprazole 40 MG Vial IV SCH ×2 (03:03→14:32)
[2020-02-27] MEDS: Albuterol 8 GM Inhaler INH PRN (07:15)
[2020-02-27] MEDS ORDERED: Levothyroxine 50 MCG Tab PO SCH (07:30)
[2020-02-27] MEDS: Levothyroxine 100 MCG Tab PO SCH (08:43)
[2020-02-27] MEDS: Levothyroxine 25 MCG Tab PO SCH (08:43)
[2020-02-27] MEDS: Formoterol/Mometasone 200-5 MCG 8.8 GM Inhaler IH SCH ×2 (08:43→20:44)
[2020-02-27] MEDS: Escitalopram 10 MG Tab PO SCH (08:44)
[2020-02-27] MEDS ORDERED: Formoterol/Mometasone 200-5 MCG 8.8 GM Inhaler IH SCH (09:00)
[2020-02-27] MEDS ORDERED: Potassium Chloride 20 MEQ Tab.ER PO ONE ×2 (09:00→15:00)
--- NOTE | 2020-02-27 09:10 | CR ---
CHEST: Portable 02/27/2020 at 12:38 AM CLINICAL HISTORY:SOB, COPD COMPARISON:CT February 2019 FINDINGS: Study is limited due to portable technique and patient's large body habitus. Heart size and pulmonary vascular normal. There is patchy opacity diffusely throughout the right mid and lower lung field. There is minimal patchy density in the left lung base. Some of this may be subsegmental atelectasis. No effusions are seen.. There are atherosclerotic changes in the aorta. IMPRESSION: Patchy right lung infiltrate is suspect for pneumonia If clinical symptomatology persists or worsens a repeat exam is recommended.
[2020-02-27] MEDS ORDERED: LORazepam 2 MG/ML SDV IVPUSH ONE (10:55)
[2020-02-27] MEDS: Lisinopril 10 MG Tab PO SCH (11:42)
--- NOTE | 2020-02-27 14:26 | MR ---
Cholangiopancreatography CLINICAL HISTORY: Elevated bilirubin, pancreatitis COMPARISON: Ultrasound 02/27/2020 TECHNIQUE: Multiple images of the biliary system were obtained. All images were obtained on a 1.5 Kita Siemens unit. FINDINGS: The liver is enlarged. The gallbladder has a normal shape. There is some pericholecystic fluid no significant wall thickening is identified. The pancreas has normal contour without evidence of inflammatory change. Pancreatic duct has normal contour. Common bile duct and common hepatic duct have normal course and contour. IMPRESSION: Pericholecystic fluid without obvious wall thickening of the gallbladder. There is no biliary dilatation Pancreas is free of mass or inflammatory change Incidental note of a small periumbilical ventral hernia
--- NOTE | 2020-02-27 14:39 | PCM.PN ---
- General Info Date of Service: 02/27/20 Subjective Update: Ms. Tamayo is a 64-year-old woman who was admitted through the emergency department with abdominal pain, nausea, vomiting, secondary to pancreatitis. She denies previous episodes of pancreatitis and to this point has not had known gallbladder disease. Lipase level was found to be significantly elevated at 10,000 although has improved to 3000 this morning. White blood cell count was elevated and has improved from admission. She reports that her abdominal pain, nausea and vomiting have resolved. Ultrasound was obtained in the emergency department and showed no evidence of obstruction. Liver enzymes including bilirubin are elevated indicating that this may have been a passed gallstone. MRCP was obtained today and shows pericholecystic fluid, no evidence of wall thickening or ductal obstruction. Functional Status: Reports: Ambulating, Urinating - Review of Systems General: Reports: No Symptoms Pulmonary: Reports: No Symptoms Cardiovascular: Reports: No Symptoms Gastrointestinal: Reports: No Symptoms - Patient Data Vitals - Most Recent: Last Vital Signs Temp 99.6 F 02/27/20 14:09 Pulse 90 02/27/20 14:09 Resp 18 02/27/20 14:09 BP 121/50 L 02/27/20 14:09 Pulse Ox 97 02/27/20 14:09 Weight - Most Recent: 229 lb 4.492 oz I&O - Last 24 Hours: Intake & Output 02/26/20 02/27/20 02/27/20 22:59 06:59 14:59 Intake Total 570 Balance 570 Lab Results Last 24 Hours: Laboratory Results - last 24 hr 02/26/20 02/26/20 02/26/20 Range/Units 23:35 23:56 23:56 WBC 13.4 H (4.5-11.0) K/uL RBC 5.24 (3.30-5.50) M/uL Hgb 14.5 (12.0-15.0) g/dL Hct 46.4 (36.0-48.0) % MCV 89 (80-98) fL MCH 28 (27-31) pg MCHC 31 L (32-36) % Plt Count 220 (150-400) K/uL Neut % (Auto) 87 H (36-66) % Lymph % (Auto) 6 L (24-44) % [place] % (Auto) 6 (2-6) % Eos % (Auto) 1 L (2-4) % Baso % (Auto) 0 (0-1) % PT (9.5-12.0) sec INR (0.80-1.20) Sodium 138 L (140-148) mmol/L Potassium 3.4 L (3.6-5.2) mmol/L Chloride 96 L (100-108) mmol/L Carbon Dioxide 33 H (21-32) mmol/L Anion Gap 12.4 (5.0-14.0) mmol/L BUN 16 (7-18) mg/dL Creatinine 0.9 (0.6-1.0) mg/dL Est Cr Clr Drug Dosing 48.63 mL/min Estimated GFR (MDRD) > 60 (>60) Glucose 157 H (74-106) mg/dL Calcium 9.4 (8.5-10.1) mg/dL Magnesium (1.8-2.4) mg/dL Total Bilirubin 2.2 H (0.2-1.0) mg/dL AST 840 H (15-37) U/L ALT 955 H (12-78) U/L Alkaline Phosphatase 228 H (46-116) U/L C-Reactive Protein (0.0-0.3) mg/dL Total Protein 8.3 H (6.4-8.2) g/dL Albumin 3.9 (3.4-5.0) g/dL Globulin 4.4 H (2.3-3.5) g/dL Albumin/Globulin Ratio 0.9 L (1.2-2.2) Triglycerides (15-150) mg/dL Cholesterol (0-200) mg/dL LDL Cholesterol Direct (0-100) mg/dL HDL Cholesterol (40-60) mg/dL Amylase 1082 H (25-115) U/L Lipase 47796 H (73-393) U/L Urine Color (YELLOW) Urine Appearance (CLEAR) Urine pH (5.0-8.0) Ur Specific [place] (1.008-1.030) Urine Protein (NEGATIVE) mg/dL Urine Glucose (UA) (NEGATIVE) mg/dL Urine Ketones (NEGATIVE) mg/dL Urine Occult Blood (NEGATIVE) Urine Nitrite (NEGATIVE) Urine Bilirubin (NEGATIVE) Urine Urobilinogen (0.2-1.0) EU/dL Ur Leukocyte Esterase (NEGATIVE) Urine RBC (0-5) Urine WBC (0-5) Ur Epithelial Cells Amorphous Sediment Urine Bacteria Urine Mucus SARS-CoV-2 RNA (SHELLEY) (NEGATIVE) 02/27/20 02/27/20 02/27/20 Range/Units 00:15 00:59 01:03 WBC (4.5-11.0) K/uL RBC (3.30-5.50) M/uL Hgb (12.0-15.0) g/dL Hct (36.0-48.0) % MCV (80-98) fL MCH (27-31) pg MCHC (32-36) % Plt Count (150-400) K/uL Neut % (Auto) (36-66) % Lymph % (Auto) (24-44) % [place] % (Auto) (2-6) % Eos % (Auto) (2-4) % Baso % (Auto) (0-1) % PT 10.7 (9.5-12.0) sec INR 0.98 (0.80-1.20) Sodium (140-148) mmol/L Potassium (3.6-5.2) mmol/L Chloride (100-108) mmol/L Carbon Dioxide (21-32) mmol/L Anion Gap (5.0-14.0) mmol/L BUN (7-18) mg/dL Creatinine (0.6-1.0) mg/dL Est Cr Clr Drug Dosing mL/min Estimated GFR (MDRD) (>60) Glucose (74-106) mg/dL Calcium (8.5-10.1) mg/dL Magnesium (1.8-2.4) mg/dL Total Bilirubin (0.2-1.0) mg/dL AST (15-37) U/L ALT (12-78) U/L Alkaline Phosphatase (46-116) U/L C-Reactive Protein (0.0-0.3) mg/dL Total Protein (6.4-8.2) g/dL Albumin (3.4-5.0) g/dL Globulin (2.3-3.5) g/dL Albumin/Globulin Ratio (1.2-2.2) Triglycerides (15-150) mg/dL Cholesterol (0-200) mg/dL LDL Cholesterol Direct (0-100) mg/dL HDL Cholesterol (40-60) mg/dL Amylase (25-115) U/L Lipase (73-393) U/L Urine Color [place] A (YELLOW) Urine Appearance Clear (CLEAR) Urine pH 7.0 (5.0-8.0) Ur Specific [place] 1.025 (1.008-1.030) Urine Protein Negative (NEGATIVE) mg/dL Urine Glucose (UA) Negative (NEGATIVE) mg/dL Urine Ketones Negative (NEGATIVE) mg/dL Urine Occult Blood Negative (NEGATIVE) Urine Nitrite Negative (NEGATIVE) Urine Bilirubin Negative (NEGATIVE) Urine Urobilinogen 0.2 (0.2-1.0) EU/dL Ur Leukocyte Esterase Trace H (NEGATIVE) Urine RBC Not seen (0-5) Urine WBC 0-5 (0-5) Ur Epithelial Cells Many Amorphous Sediment Few Urine Bacteria Not seen Urine Mucus Not seen SARS-CoV-2 RNA (SHELLEY) Positive H (NEGATIVE) 02/27/20 02/27/20 Range/Units 04:13 04:13 WBC 11.8 H (4.5-11.0) K/uL RBC 4.33 (3.30-5.50) M/uL Hgb 12.0 D (12.0-15.0) g/dL Hct 38.6 (36.0-48.0) % MCV 89 (80-98) fL MCH 28 (27-31) pg MCHC 31 L (32-36) % Plt Count 175 (150-400) K/uL Neut % (Auto) 83 H (36-66) % Lymph % (Auto) 7 L (24-44) % Avery % (Auto) 9 H (2-6) % Eos % (Auto) 1 L (2-4) % Baso % (Auto) 0 (0-1) % PT (9.5-12.0) sec INR (0.80-1.20) Sodium 141 (140-148) mmol/L Potassium 3.5 L (3.6-5.2) mmol/L Chloride 101 (100-108) mmol/L Carbon Dioxide 30 (21-32) mmol/L Anion Gap 13.5 (5.0-14.0) mmol/L BUN 13 (7-18) mg/dL Creatinine 0.8 (0.6-1.0) mg/dL Est Cr Clr Drug Dosing 54.71 mL/min Estimated GFR (MDRD) > 60 (>60) Glucose 140 H (74-106) mg/dL Calcium 8.3 L (8.5-10.1) mg/dL Magnesium 1.6 L (1.8-2.4) mg/dL Total Bilirubin 2.5 H (0.2-1.0) mg/dL AST 583 H (15-37) U/L ALT 747 H (12-78) U/L Alkaline Phosphatase 179 H (46-116) U/L C-Reactive Protein 1.75 H (0.0-0.3) mg/dL Total Protein 6.3 L (6.4-8.2) g/dL Albumin 2.9 L (3.4-5.0) g/dL Globulin 3.4 (2.3-3.5) g/dL Albumin/Globulin Ratio 0.9 L (1.2-2.2) Triglycerides 115 (15-150) mg/dL Cholesterol 151 (0-200) mg/dL LDL Cholesterol Direct 91 (0-100) mg/dL HDL Cholesterol 37 L (40-60) mg/dL Amylase (25-115) U/L Lipase 3588 H (73-393) U/L Urine Color (YELLOW) Urine Appearance (CLEAR) Urine pH (5.0-8.0) Ur Specific [place] (1.008-1.030) Urine Protein (NEGATIVE) mg/dL Urine Glucose (UA) (NEGATIVE) mg/dL Urine Ketones (NEGATIVE) mg/dL Urine Occult Blood (NEGATIVE) Urine Nitrite (NEGATIVE) Urine Bilirubin (NEGATIVE) Urine Urobilinogen (0.2-1.0) EU/dL Ur Leukocyte Esterase (NEGATIVE) Urine RBC (0-5) Urine WBC (0-5) Ur Epithelial Cells Amorphous Sediment Urine Bacteria Urine Mucus SARS-CoV-2 RNA (SHELLEY) (NEGATIVE) Med Orders - Current: Current Medications Albuterol (Ventolin Hfa) 0 gm INH Q2H PRN PRN Reason: Wheezing Last Admin: 02/27/20 07:15 Dose: 2 puff Documented by: Albuterol/Ipratropium (Combivent Respimat) 0 gm INH Q4H PRN PRN Reason: Dyspnea Escitalopram Oxalate (Lexapro) 10 mg PO DAILY [facility] Last Admin: 02/27/20 08:44 Dose: 10 mg Documented by: Hydromorphone HCl (Dilaudid) 0.5 mg IVPUSH Q4H PRN PRN Reason: Pain Last Admin: 02/27/20 08:56 Dose: 0.5 mg Documented by: Promethazine HCl 12.5 mg/ (Sodium Chloride) 50.5 mls @ 200 mls/hr IV Q6H PRN PRN Reason: Nausea/Vomiting Levothyroxine Sodium (Synthroid) 100 mcg PO ACBREAKFAST [facility] Last Admin: 02/27/20 08:43 Dose: 100 mcg Documented by: Levothyroxine Sodium (Levothyroxine) 25 mcg PO ACBREAKFAST [facility] Last Admin: 02/27/20 08:43 Dose: 25 mcg Documented by: Lisinopril (Prinivil) 10 mg PO DAILY [facility] Last Admin: 02/27/20 11:42 Dose: Not Given Documented by: Mometasone Furoate/Formoterol Fumar (Dulera 200-5 Mcg) 2 puff IH BIDRT [facility] Last Admin: 02/27/20 08:43 Dose: Not Given Documented by: Ondansetron HCl (Zofran) 4 mg IV Q4H PRN PRN Reason: Nausea/Vomiting Pantoprazole Sodium (Protonix Iv) 40 mg IV Q12H [facility] Last Admin: 02/27/20 03:03 Dose: 40 mg Documented by: Potassium Chloride (Klor-Con M20) 40 meq PO ONETIME ONE Stop: 02/27/20 15:01 Discontinued Medications Hydromorphone HCl (Dilaudid) 0.5 mg IVPUSH ONETIME ONE Stop: 02/26/20 23:37 Last Admin: 02/26/20 23:58 Dose: 0.5 mg Documented by: Sodium Chloride (Normal Saline) 1,000 mls @ 500 mls/hr IV ASDIRECTED [facility] Last Admin: 02/26/20 23:53 Dose: 500 mls/hr Documented by: Sodium Chloride (Normal Saline) 1,000 mls @ 500 mls/hr IV ASDIRECTED [facility] Last Admin: 02/27/20 02:03 Dose: 500 mls/hr Documented by: Lactated Ringer's (Ringers, Lactated) 1,000 mls @ 250 mls/hr IV ASDIRECTED [facility] Last Admin: 02/27/20 04:25 Dose: 250 mls/hr Documented by: Lorazepam (Ativan) 0.5 mg IVPUSH ONETIME ONE Stop: 02/27/20 10:56 Last Admin: 02/27/20 11:22 Dose: 0.5 mg Documented by: Ondansetron HCl (Zofran) 4 mg IVPUSH ONETIME ONE Stop: 02/26/20 23:37 Last Admin: 02/26/20 23:56 Dose: 4 mg Documented by: Potassium Chloride (Klor-Con M20) 40 meq PO ONETIME ONE Stop: 02/27/20 09:01 Last Admin: 02/27/20 14:29 Dose: Not Given Documented by: - Exam Quality Assessment: Supplemental Oxygen, DVT Prophylaxis General: Alert, Oriented, Cooperative, No Acute Distress Lungs: Clear to Auscultation, Normal Respiratory Effort Cardiovascular: Regular Rate, Regular Rhythm, No Murmurs GI/Abdominal Exam: Soft, Non-Tender, No Organomegaly, No Distention Extremities: Non-Tender, No Pedal Edema Sepsis Event Note - Evaluation Sepsis Screening Result: No Definite Risk - Focused Exam Vital Signs: Vital Signs Temp Pulse Resp BP Pulse Ox 02/27/20 14:09 99.6 F 90 18 121/50 L 97 02/27/20 12:59 95 02/27/20 10:31 98.0 F 85 18 104/53 L 92 L 02/27/20 08:48 97 101/59 L 02/27/20 07:24 91 L 02/27/20 07:07 99.1 F 99 18 113/59 L 93 L 02/27/20 03:47 99.2 F 103 H 16 114/100 H 92 L 02/27/20 03:25 98 - Problem List Review Problem List Initiated/Reviewed/Updated: Yes - My Orders Last 24 Hours: My Active Orders 02/27/20 11:31 SCD [Sequential Compression Device] [OM.PC] Routine 02/27/20 Lunch Full Liquid Diet [DIET] 02/27/20 14:29 Convert IV to Saline Lock [OM.PC] Routine 02/27/20 15:00 Potassium Chloride [Klor-Con M20] 40 meq PO ONETIME ONE 02/28/20 05:00 CBC WITH AUTO DIFF [HEME] Timed COMPREHENSIVE METABOLIC PN,CMP [CHEM] Timed LIPASE [CHEM] Timed - Plan Plan:: ASSESSMENT AND PLAN PANCREATITIS-likely secondary to common duct stone that has now passed. Symptoms have resolved and lipase level significantly improved from admission. MRCP obtained today shows no evidence of obstruction. -Saline lock IV -Full liquid diet, advance as tolerated ELEVATED LIVER ENZYMES-likely secondary to a common duct stone which is passed. Other than fluid around the gallbladder no evidence of underlying infection or acute cholecystitis. -Recheck labs in a.m. COPD-currently requires supplemental oxygen 2 L/min, since Covid infection late January. No evidence of acute exacerbation. -Continue current management MAINTENANCE ISSUES -DVT prophylaxis; SCUDs -GI prophylaxis; not indicated -Junior catheter; not indicated -Nutrition; full liquid diet -Nicotine dependence; not required CODE STATUS-FULL CODE ADMISSION STATUS-patient will be admitted to inpatient status, expect at least a 2 night hospital stay for evaluation and management of problems as outlined above. At the time of this admission I do not reasonably expected evaluation and management of this problem will require more than a 96 hour hospital stay. DISPOSITION-anticipate discharge to home after the hospital stay. PRIMARY CARE PROVIDER-Dr. Carr
[2020-02-27] MEDS: Acetaminophen 325 MG Tab PO PRN (17:23)
[2020-02-28] MEDS: Pantoprazole 40 MG Vial IV SCH ×2 (01:09→01:37)
[2020-02-28] MEDS: Acetaminophen 325 MG Tab PO PRN ×3 (01:48→15:13)
[2020-02-28] MEDS: Formoterol/Mometasone 200-5 MCG 8.8 GM Inhaler IH SCH ×2 (06:08→21:22)
[2020-02-28] MEDS: Levothyroxine 100 MCG Tab PO SCH (07:38)
[2020-02-28] MEDS: Levothyroxine 25 MCG Tab PO SCH (07:38)
[2020-02-28] MEDS: Escitalopram 10 MG Tab PO SCH (08:41)
[2020-02-28] MEDS: Lisinopril 10 MG Tab PO SCH (10:11)
[2020-02-28] MEDS: Albuterol 8 GM Inhaler INH PRN (10:15)
--- NOTE | 2020-02-28 11:56 | PCM.PN ---
- General Info Date of Service: 02/28/20 Subjective Update: Ms. Tamayo has been stable since yesterday, no further abdominal pain, nausea, or vomiting. She is tolerated a full liquid diet and today has been advanced to a regular diet which she is tolerated without difficulty. White blood cell count and lipase level have normalized. Liver enzymes remain elevated and bilirubin has gone up to 4.0. Functional Status: Reports: Tolerating Diet, Ambulating, Urinating - Review of Systems General: Reports: No Symptoms Pulmonary: Reports: No Symptoms Cardiovascular: Reports: No Symptoms Gastrointestinal: Reports: No Symptoms - Patient Data Vitals - Most Recent: Last Vital Signs Temp 99.0 F 02/28/20 07:35 Pulse 94 02/28/20 07:35 Resp 18 02/28/20 07:35 BP 108/62 02/28/20 07:35 Pulse Ox 95 02/28/20 07:35 Weight - Most Recent: 229 lb I&O - Last 24 Hours: Intake & Output 02/27/20 02/28/20 02/28/20 22:59 06:59 14:59 Intake Total 2310 300 400 Balance 2310 300 400 Lab Results Last 24 Hours: Laboratory Results - last 24 hr 02/28/20 02/28/20 Range/Units 04:25 04:25 WBC 6.2 (4.5-11.0) K/uL RBC 4.51 (3.30-5.50) M/uL Hgb 12.3 (12.0-15.0) g/dL Hct 41.7 (36.0-48.0) % MCV 93 (80-98) fL MCH 27 (27-31) pg MCHC 30 L (32-36) % Plt Count 141 L (150-400) K/uL Neut % (Auto) 74 H (36-66) % Lymph % (Auto) 10 L (24-44) % [place] % (Auto) 13 H (2-6) % Eos % (Auto) 3 (2-4) % Baso % (Auto) 0 (0-1) % Sodium 141 (140-148) mmol/L Potassium 3.8 (3.6-5.2) mmol/L Chloride 102 (100-108) mmol/L Carbon Dioxide 36 H (21-32) mmol/L Anion Gap 6.8 (5.0-14.0) mmol/L BUN 4 L D (7-18) mg/dL Creatinine 0.8 (0.6-1.0) mg/dL Est Cr Clr Drug Dosing 54.71 mL/min Estimated GFR (MDRD) > 60 (>60) Glucose 122 H (74-106) mg/dL Calcium 9.0 (8.5-10.1) mg/dL Total Bilirubin 4.0 H D (0.2-1.0) mg/dL AST 334 H (15-37) U/L ALT 605 H (12-78) U/L Alkaline Phosphatase 184 H (46-116) U/L Total Protein 6.8 (6.4-8.2) g/dL Albumin 2.9 L (3.4-5.0) g/dL Globulin 3.9 H (2.3-3.5) g/dL Albumin/Globulin Ratio 0.7 L (1.2-2.2) Lipase 85 (73-393) U/L Med Orders - Current: Current Medications Acetaminophen (Tylenol) 650 mg PO Q4H PRN PRN Reason: Pain Last Admin: 02/28/20 07:37 Dose: 650 mg Documented by: Albuterol (Ventolin Hfa) 0 gm INH Q2H PRN PRN Reason: Wheezing Last Admin: 02/28/20 10:15 Dose: 2 puff Documented by: Albuterol/Ipratropium (Combivent Respimat) 0 gm INH Q4H PRN PRN Reason: Dyspnea Escitalopram Oxalate (Lexapro) 10 mg PO DAILY [facility] Last Admin: 02/28/20 08:41 Dose: 10 mg Documented by: Hydromorphone HCl (Dilaudid) 0.5 mg IVPUSH Q4H PRN PRN Reason: Pain Last Admin: 02/27/20 08:56 Dose: 0.5 mg Documented by: Promethazine HCl 12.5 mg/ (Sodium Chloride) 50.5 mls @ 200 mls/hr IV Q6H PRN PRN Reason: Nausea/Vomiting Levothyroxine Sodium (Synthroid) 100 mcg PO ACBREAKFAST [facility] Last Admin: 02/28/20 07:38 Dose: 100 mcg Documented by: Levothyroxine Sodium (Levothyroxine) 25 mcg PO ACBREAKFAST [facility] Last Admin: 02/28/20 07:38 Dose: 25 mcg Documented by: Lisinopril (Prinivil) 10 mg PO DAILY [facility] Last Admin: 02/28/20 10:11 Dose: Not Given Documented by: Mometasone Furoate/Formoterol Fumar (Dulera 200-5 Mcg) 2 puff IH BIDRT [facility] Last Admin: 02/28/20 06:08 Dose: Not Given Documented by: Ondansetron HCl (Zofran) 4 mg IV Q4H PRN PRN Reason: Nausea/Vomiting Pantoprazole Sodium (Protonix) 40 mg PO BIDAC [facility] Discontinued Medications Hydromorphone HCl (Dilaudid) 0.5 mg IVPUSH ONETIME ONE Stop: 02/26/20 23:37 Last Admin: 02/26/20 23:58 Dose: 0.5 mg Documented by: Sodium Chloride (Normal Saline) 1,000 mls @ 500 mls/hr IV ASDIRECTED [facility] Last Admin: 02/26/20 23:53 Dose: 500 mls/hr Documented by: Sodium Chloride (Normal Saline) 1,000 mls @ 500 mls/hr IV ASDIRECTED [facility] Last Admin: 02/27/20 02:03 Dose: 500 mls/hr Documented by: Lactated Ringer's (Ringers, Lactated) 1,000 mls @ 250 mls/hr IV ASDIRECTED [facility] Last Admin: 02/27/20 04:25 Dose: 250 mls/hr Documented by: Lorazepam (Ativan) 0.5 mg IVPUSH ONETIME ONE Stop: 02/27/20 10:56 Last Admin: 02/27/20 11:22 Dose: 0.5 mg Documented by: Ondansetron HCl (Zofran) 4 mg IVPUSH ONETIME ONE Stop: 02/26/20 23:37 Last Admin: 02/26/20 23:56 Dose: 4 mg Documented by: Pantoprazole Sodium (Protonix Iv) 40 mg IV Q12H [facility] Last Admin: 02/28/20 01:37 Dose: Not Given Documented by: Potassium Chloride (Klor-Con M20) 40 meq PO ONETIME ONE Stop: 02/27/20 09:01 Last Admin: 02/27/20 14:29 Dose: Not Given Documented by: Potassium Chloride (Klor-Con M20) 40 meq PO ONETIME ONE Stop: 02/27/20 15:01 Last Admin: 02/27/20 14:42 Dose: 40 meq Documented by: - Exam Quality Assessment: Supplemental Oxygen, DVT Prophylaxis General: Alert, Oriented, Cooperative, No Acute Distress Lungs: Clear to Auscultation, Normal Respiratory Effort Cardiovascular: Regular Rate, Regular Rhythm, No Murmurs GI/Abdominal Exam: Soft, Non-Tender, No Organomegaly, No Distention Extremities: Non-Tender, No Pedal Edema Sepsis Event Note - Evaluation Sepsis Screening Result: No Definite Risk - Focused Exam Vital Signs: Vital Signs Temp Pulse Resp BP Pulse Ox Pulse Ox 02/28/20 07:35 99.0 F 94 18 108/62 95 02/28/20 05:00 84 97 02/28/20 02:28 95 02/28/20 01:53 96 02/28/20 01:05 97.8 F 18 138/87 94 L - Problem List Review Problem List Initiated/Reviewed/Updated: Yes - My Orders Last 24 Hours: My Active Orders 02/27/20 11:31 SCD [Sequential Compression Device] [OM.PC] Routine 02/27/20 14:29 Convert IV to Saline Lock [OM.PC] Routine 02/27/20 16:57 Acetaminophen [TylenoL] 650 mg PO Q4H PRN 02/27/20 Dinner Regular Diet [DIET] 02/29/20 05:00 COMPREHENSIVE METABOLIC PN,CMP [CHEM] Timed - Plan Plan:: ASSESSMENT AND PLAN PANCREATITIS-likely secondary to common duct stone that has now passed. Symptoms have totally resolved and lipase level has normalized -Saline lock IV -Regular diet ELEVATED LIVER ENZYMES-likely secondary to a common duct stone which is passed. Other than fluid around the gallbladder no evidence of underlying infection or acute cholecystitis. Liver enzymes remain elevated and bilirubin has increased to 4.0. No other obvious evidence of underlying infection at this time. Symptoms have resolved, she has remained afebrile, white blood cell count has normalized -Recheck labs in a.m. COPD-currently requires supplemental oxygen 2 L/min, since Covid infection late January. No evidence of acute exacerbation. -Continue current management MAINTENANCE ISSUES -DVT prophylaxis; SCUDs -GI prophylaxis; not indicated -Junior catheter; not indicated -Nutrition; regular diet -Nicotine dependence; not required CODE STATUS-FULL CODE ADMISSION STATUS-patient will be admitted to inpatient status, expect at least a 2 night hospital stay for evaluation and management of problems as outlined above. At the time of this admission I do not reasonably expected evaluation and management of this problem will require more than a 96 hour hospital stay. DISPOSITION-anticipate discharge to home after the hospital stay. PRIMARY CARE PROVIDER-Dr. Carr
[2020-02-28] MEDS ORDERED: Polyethylene Glycol 3350 Powder 17 GM Packet PO ONE (16:30)
[2020-02-28] MEDS: Pantoprazole 40 MG Tab.CR PO SCH (16:34)
[2020-02-29] MEDS: Acetaminophen 325 MG Tab PO PRN (04:31)
[2020-02-29] MEDS: Albuterol 8 GM Inhaler INH PRN (04:31)
[2020-02-29 07:33] VITALS: PULSE 81
[2020-02-29] MEDS: Formoterol/Mometasone 200-5 MCG 8.8 GM Inhaler IH SCH (08:46)
[2020-02-29] MEDS: Escitalopram 10 MG Tab PO SCH (08:46)
[2020-02-29] MEDS: Pantoprazole 40 MG Tab.CR PO SCH (08:46)
[2020-02-29] MEDS: Levothyroxine 25 MCG Tab PO SCH (08:46)
[2020-02-29] MEDS: Levothyroxine 100 MCG Tab PO SCH (08:46)
[2020-02-29 08:47] VITALS: BP 106/61
[2020-02-29] MEDS: Lisinopril 10 MG Tab PO SCH (08:47)
--- NOTE | 2020-02-29 10:34 | PCM.DCSUM1 ---
Discharge Summary - Hospital Course Brief History: Ms. Tamayo is a 64-year-old woman who was admitted through the emergency department with nausea, vomiting, abdominal pain, secondary to acute pancreatitis. - Discharge Data Discharge Date: 02/29/20 Discharge Disposition: Home, Self-Care 01 Condition: Fair - Referral to Home Health Primary Care Physician: PCP None - Discharge Diagnosis/Problem(s) (1) Acute gallstone pancreatitis SNOMED Code(s): 895703047 ICD Code: K85.10 - BILIARY ACUTE PANCREATITIS WITHOUT NECROSIS OR INFECTION Status: Acute Current Visit: Yes (2) Elevated liver enzymes SNOMED Code(s): 332936215 ICD Code: R74.8 - ABNORMAL LEVELS OF OTHER SERUM ENZYMES Status: Acute Current Visit: Yes (3) COPD (chronic obstructive pulmonary disease) SNOMED Code(s): 79788649 ICD Code: J44.9 - CHRONIC OBSTRUCTIVE PULMONARY DISEASE, UNSPECIFIED Status: Chronic Current Visit: Yes Problem Details: Will order inhalers for patient to treat COPD and COVID symptoms as needed Qualifiers: COPD type: chronic bronchitis Chronic bronchitis type: simple Qualified Code(s): J41.0 - Simple chronic bronchitis (4) Morbid obesity with BMI of 40.0-44.9, adult SNOMED Code(s): 353789161, 92901010824706 ICD Code: E66.01 - MORBID (SEVERE) OBESITY DUE TO EXCESS CALORIES; Z68.41 - BODY MASS INDEX [BMI]40.0-44.9, ADULT Status: Chronic Current Visit: No (5) Chronic bilateral low back pain SNOMED Code(s): 322301619 ICD Code: M54.5 - LOW BACK PAIN; G89.29 - OTHER CHRONIC PAIN Status: Chronic Current Visit: No - Patient Summary/Data Hospital Course: Patient is a 64yo female with PMH of COPD, hypothyroidism, obesity, who was found to be COVID positive 1 month ago, who presents to the ED overnight for acute worsening abdominal pain with some vomiting. She has been having the pain since yesterday and it got worse to the point that she threw up and said that she could not stand it so she called 911. She was found by the ER to have acute pancreatitis. It is suspected to be gallstone pancreatitis but there was no obstructing stone seen on imaging. Patient says she does not drink alcohol and she has never had pancreatitis in the past. She says the dilaudid is helping her pain and her nausea has improved with fluids and zofran. She has been needing O2 since her initial positive test for covid. Lipase level was found to be markedly elevated at 10,000 and liver enzymes were also noted to be elevated. Ultrasound was obtained showing no evidence of obstruction or acute cholecystitis, sludge was noted in the gallbladder. Later that morning after admission she felt improved with marked decrease in her pain and no further nausea or vomiting. Just over a few hours of time her lipase level had improved to 3000. Bilirubin had increased to 2.5, transaminase levels remained elevated. MRCP was obtained which did show some pericolic systolic fluid but no evidence of wall thickening and no evidence of ductal obstruction. She was started on a clear liquid diet which was advanced to a regular diet which she tolerated without difficulty and no recurrence of abdominal pain nausea or vomiting. On the day prior to discharge bilirubin did increase to 4.0 and so she was kept 1 more day to monitor bilirubin level and liver tests. On the day of discharge bilirubin had dropped to 1.7, transaminase levels were improved but still elevated. She will likely require outpatient cholecystectomy. Activity will be as tolerated and she is instructed to follow a low-fat diet. Follow-up appointment will be scheduled with Dr. Carr within 1 week, liver profile should be obtained at the time of follow-up appointment. - Patient Instructions Diet: Usual Diet as Tolerated Activity: As Tolerated Other/Special Instructions: Please schedule follow-up appointment with Dr. Carr within 1 week. Liver panel should be obtained at the time of follow-up appointment. - Discharge Plan *PRESCRIPTION DRUG MONITORING PROGRAM REVIEWED*: Not Applicable *COPY OF PRESCRIPTION DRUG MONITORING REPORT IN PATIENT SEEMA: Not Applicable Home Medications: Home Meds Albuterol Sulfate [Proventil Hfa] 6.7 gm IH TID 01/31/20 [History] Albuterol [Ventolin 2 MG/5 ML] 0.4 mg PO ASDIRECTED PRN 01/31/20 [History] Aspirin [Halfprin] 81 mg PO DAILY 01/31/20 [History] Budesonide/Formoterol [Symbicort 160-4.5 MCG] 4 puff INH BID 01/31/20 [History] Escitalopram [Lexapro] 10 mg PO DAILY 01/31/20 [History] Levothyroxine Sodium [Synthroid] 125 mcg PO DAILY 01/31/20 [History] Referrals: Sarah Carr DO [Physician] - 03/06/20 1:40 pm (Arrive 15 minutes early to register for your appointment.) - Discharge Summary/Plan Comment DC Time >30 min.: No - Patient Data Vitals - Most Recent: Last Vital Signs Temp 97.5 F 02/29/20 07:32 Pulse 81 02/29/20 07:32 Resp 16 02/29/20 07:32 BP 106/61 02/29/20 08:47 Pulse Ox 97 02/29/20 07:32 Weight - Most Recent: 229 lb I&O - Last 24 hours: Intake & Output 02/28/20 02/29/20 02/29/20 22:59 06:59 14:59 Intake Total 540 800 480 Balance 540 800 480 Lab Results - Last 24 hrs: Laboratory Results - last 24 hr 02/29/20 Range/Units 05:00 Sodium 138 L (140-148) mmol/L Potassium 3.7 (3.6-5.2) mmol/L Chloride 97 L (100-108) mmol/L Carbon Dioxide 34 H (21-32) mmol/L Anion Gap 10.7 (5.0-14.0) mmol/L BUN 7 D (7-18) mg/dL Creatinine 0.7 (0.6-1.0) mg/dL Est Cr Clr Drug Dosing 62.53 mL/min Estimated GFR (MDRD) > 60 (>60) Glucose 147 H (74-106) mg/dL Calcium 8.9 (8.5-10.1) mg/dL Total Bilirubin 1.7 H D (0.2-1.0) mg/dL AST 257 H (15-37) U/L ALT 532 H (12-78) U/L Alkaline Phosphatase 186 H (46-116) U/L Total Protein 7.3 (6.4-8.2) g/dL Albumin 3.0 L (3.4-5.0) g/dL Globulin 4.3 H (2.3-3.5) g/dL Albumin/Globulin Ratio 0.7 L (1.2-2.2) Med Orders - Current: Current Medications Acetaminophen (Tylenol) 650 mg PO Q4H PRN PRN Reason: Pain Last Admin: 02/29/20 04:31 Dose: 650 mg Documented by: Albuterol (Ventolin Hfa) 0 gm INH Q2H PRN PRN Reason: Wheezing Last Admin: 02/29/20 04:31 Dose: 2 puff Documented by: Albuterol/Ipratropium (Combivent Respimat) 0 gm INH Q4H PRN PRN Reason: Dyspnea Escitalopram Oxalate (Lexapro) 10 mg PO DAILY [facility] Last Admin: 02/29/20 08:46 Dose: 10 mg Documented by: Hydromorphone HCl (Dilaudid) 0.5 mg IVPUSH Q4H PRN PRN Reason: Pain Last Admin: 02/27/20 08:56 Dose: 0.5 mg Documented by: Promethazine HCl 12.5 mg/ (Sodium Chloride) 50.5 mls @ 200 mls/hr IV Q6H PRN PRN Reason: Nausea/Vomiting Levothyroxine Sodium (Synthroid) 100 mcg PO ACBREAKFAST [facility] Last Admin: 02/29/20 08:46 Dose: 100 mcg Documented by: Levothyroxine Sodium (Levothyroxine) 25 mcg PO ACBREAKFAST [facility] Last Admin: 02/29/20 08:46 Dose: 25 mcg Documented by: Lisinopril (Prinivil) 10 mg PO DAILY [facility] Last Admin: 02/29/20 08:47 Dose: 10 mg Documented by: Mometasone Furoate/Formoterol Fumar (Dulera 200-5 Mcg) 2 puff IH BIDRT [facility] Last Admin: 02/29/20 08:46 Dose: Not Given Documented by: Ondansetron HCl (Zofran) 4 mg IV Q4H PRN PRN Reason: Nausea/Vomiting Pantoprazole Sodium (Protonix) 40 mg PO BIDAC [facility] Last Admin: 02/29/20 08:46 Dose: 40 mg Documented by: Discontinued Medications Hydromorphone HCl (Dilaudid) 0.5 mg IVPUSH ONETIME ONE Stop: 02/26/20 23:37 Last Admin: 02/26/20 23:58 Dose: 0.5 mg Documented by: Sodium Chloride (Normal Saline) 1,000 mls @ 500 mls/hr IV ASDIRECTED [facility] Last Admin: 02/26/20 23:53 Dose: 500 mls/hr Documented by: Sodium Chloride (Normal Saline) 1,000 mls @ 500 mls/hr IV ASDIRECTED [facility] Last Admin: 02/27/20 02:03 Dose: 500 mls/hr Documented by: Lactated Ringer's (Ringers, Lactated) 1,000 mls @ 250 mls/hr IV ASDIRECTED [facility] Last Admin: 02/27/20 04:25 Dose: 250 mls/hr Documented by: Lorazepam (Ativan) 0.5 mg IVPUSH ONETIME ONE Stop: 02/27/20 10:56 Last Admin: 02/27/20 11:22 Dose: 0.5 mg Documented by: Ondansetron HCl (Zofran) 4 mg IVPUSH ONETIME ONE Stop: 02/26/20 23:37 Last Admin: 02/26/20 23:56 Dose: 4 mg Documented by: Pantoprazole Sodium (Protonix Iv) 40 mg IV Q12H [facility] Last Admin: 02/28/20 01:37 Dose: Not Given Documented by: Polyethylene Glycol (Miralax) 17 gm PO ONETIME ONE Stop: 02/28/20 16:31 Last Admin: 02/28/20 16:34 Dose: 17 gm Documented by: Potassium Chloride (Klor-Con M20) 40 meq PO ONETIME ONE Stop: 02/27/20 09:01 Last Admin: 02/27/20 14:29 Dose: Not Given Documented by: Potassium Chloride (Klor-Con M20) 40 meq PO ONETIME ONE Stop: 02/27/20 15:01 Last Admin: 02/27/20 14:42 Dose: 40 meq Documented by: - Exam General: Reports: Alert, Oriented, Cooperative, No Acute Distress Lungs: Reports: Clear to Auscultation, Normal Respiratory Effort Cardiovascular: Reports: Regular Rate, Regular Rhythm, No Murmurs GI/Abdominal Exam: Soft, Non-Tender, No Organomegaly, No Distention Extremities: Non-Tender, No Pedal Edema
== END 2020-02-29 11:20 | disposition home or self-care (01) | DRG 438 ==
LOC: JP.ED 23:12 → JP.MS 02-27 02:28
PROVIDERS: ADMIT Family Medicine; ATTEND Hospitalist
DX: K85.90 Acute pancreatitis without necrosis or infection, unspecified (principal); K85.10 Biliary acute pancreatitis without necrosis or infection; U07.1 COVID-19; Z68.41 Body mass index [BMI] 40.0-44.9, adult; J41.0 Simple chronic bronchitis; J44.9 Chronic obstructive pulmonary disease, unspecified; Z66 Do not resuscitate; E86.0 Dehydration; R74.8 Abnormal levels of other serum enzymes; E66.01 Morbid (severe) obesity due to excess calories; M54.5 Low back pain; G89.29 Other chronic pain; H54.7 Unspecified visual loss; K21.9 Gastro-esophageal reflux disease without esophagitis; I10 Essential (primary) hypertension; F41.9 Anxiety disorder, unspecified; F32.9 Major depressive disorder, single episode, unspecified; E03.9 Hypothyroidism, unspecified; Z88.5 Allergy status to narcotic agent; Z79.82 Long term (current) use of aspirin; Z79.890 Hormone replacement therapy; Z79.899 Other long term (current) drug therapy; Z87.891 Personal history of nicotine dependence; Z99.81 Dependence on supplemental oxygen; Z79.51 Long term (current) use of inhaled steroids
CPT/HCPCS: 36415; 71045; 71045-26; 74181; 74181-26; 76705; 80053; 80061; 81001; 82150; 83690; 83735; 85025; 85610; 86140; 94640; 94762; A9270-GY; C9113; J1170; J2060; J2405; J7030; J7120; U0002

== ENCOUNTER 2020-04-22 06:49 | Day surgery (SDC) | payer MEDICARE, MEDICAID ==
[2020-04-22] MEDS ORDERED: Sodium Chloride 0.9% 1,000 ML IV SCH (07:00)
[2020-04-22] MEDS ORDERED: Propofol 200 MG/20 ML SDV ONE (07:03)
[2020-04-22] MEDS ORDERED: fentaNYL 250 MCG/5 ML SDV ONE (07:03)
[2020-04-22] MEDS ORDERED: Succinylcholine 200 MG/10 ML MDV ONE (07:03)
[2020-04-22] MEDS ORDERED: Glycopyrrolate 0.2 MG/ML 5 ML MDV ONE (07:03)
[2020-04-22] MEDS ORDERED: Rocuronium 50 MG/5 ML Vial ONE (07:03)
[2020-04-22] MEDS ORDERED: Neostigmine Methylsulfate 1 MG/ML 5 ML Syringe ONE (07:03)
[2020-04-22] MEDS ORDERED: Ondansetron 4 MG/2 ML SDV ONE (07:03)
[2020-04-22] MEDS ORDERED: Dexamethasone 4 MG/ML SDV ONE (07:03)
[2020-04-22] MEDS ORDERED: ceFAZolin 2 GM in Sodium Chloride 0.9% 100 ML IV ONE (08:00)
[2020-04-22] MEDS ORDERED: ceFAZolin 2 GM in Premix Bag 1 BAG IV ONE (08:00)
[2020-04-22] MEDS ORDERED: Acetaminophen 500 MG Tab PO ONE (08:00)
[2020-04-22] MEDS: Dextrose 5%-Lactated Ringers 1,000 ML IV SCH ×2 (08:05→14:40)
[2020-04-22] MEDS ORDERED: Albuterol/Ipratropium 3.0-0.5 MG/3 ML Neb Soln NEB ONE (08:15)
[2020-04-22] MEDS ORDERED: Ropivacaine 50 ML, dexAMETHasone 8 MG, EPINEPHrine 0.4 MG, Sodium Chloride 0.9% 27.6 ML NERVRT SCH ×4 (08:15)
[2020-04-22] MEDS ORDERED: metroNIDAZOLE/Normal Saline 500 MG in Premix Bag 1 BAG IV ONE (08:30)
[2020-04-22] MEDS ORDERED: methylPREDNISolone Sodium Succinate 125 MG/2 ML SDV IV ONE (08:30)
[2020-04-22] MEDS: Lidocaine 1% with EPINEPHrine 1:100,000 50 ML MDV ONE ×2 (08:58→10:30)
[2020-04-22] MEDS: Bupivacaine 0.5% 50 ML MDV ONE ×2 (08:58→10:30)
[2020-04-22] MEDS ORDERED: Labetalol 20 MG/4 ML Syringe ONE (10:06)
[2020-04-22] MEDS: Ketoconazole 2% Crm 30 GM Tube TOP SCH ×3 (10:33→20:16)
[2020-04-22] MEDS ORDERED: HYDROmorphone 0.5 MG/0.5 ML Syringe IVPUSH PRN (12:28)
[2020-04-22] MEDS ORDERED: HYDROmorphone 1 MG/ML Syringe IV PRN (12:29)
[2020-04-22] MEDS ORDERED: LORazepam 0.5 MG Tab PO PRN (12:30)
[2020-04-22] MEDS ORDERED: Albuterol/Ipratropium 3.0-0.5 MG/3 ML Neb Soln INH PRN (12:30)
[2020-04-22] MEDS: Meropenem 500 MG in Sodium Chloride 0.9% 50 ML IV SCH ×2 (12:41→19:31)
[2020-04-22] MEDS: Acetaminophen/HYDROcodone 325-5 MG Tab PO PRN ×2 (12:42→17:56)
[2020-04-22] MEDS ORDERED: Ondansetron 4 MG/2 ML SDV IVPUSH PRN (13:00)
[2020-04-22] MEDS ORDERED: Pantoprazole 40 MG Vial IVPUSH SCH (14:00)
[2020-04-22] MEDS: Albuterol/Ipratropium 3.0-0.5 MG/3 ML Neb Soln INH SCH ×2 (14:27→19:39)
[2020-04-22] MEDS: SYMBICORT INH SCH (20:16)
[2020-04-23] MEDS ORDERED: Acetaminophen 325 MG Tab PO PRN (00:30)
[2020-04-23] MEDS: Dextrose 5%-Lactated Ringers 1,000 ML IV SCH (00:36)
[2020-04-23] MEDS: Albuterol/Ipratropium 3.0-0.5 MG/3 ML Neb Soln INH SCH ×3 (00:41→07:31)
[2020-04-23] MEDS: Meropenem 500 MG in Sodium Chloride 0.9% 50 ML IV SCH (03:11)
[2020-04-23] MEDS: Acetaminophen/HYDROcodone 325-5 MG Tab PO PRN (03:12)
[2020-04-23] MEDS ORDERED: Magnesium Hydroxide 400 MG/5 ML Susp 30 ML Cup PO PRN (07:04)
[2020-04-23] MEDS ORDERED: Levothyroxine 100 MCG, Levothyroxine 25 MCG PO SCH ×2 (07:30)
[2020-04-23] MEDS: SYMBICORT INH SCH (07:31)
[2020-04-23] MEDS ORDERED: Aspirin 81 MG Tab.EC PO SCH (09:00)
[2020-04-23] MEDS ORDERED: Escitalopram 20 MG Tab PO SCH (09:00)
[2020-04-23] MEDS ORDERED: Magnesium Hydroxide 400 MG/5 ML Susp 30 ML Cup PO ONE (09:02)
--- NOTE | 2020-04-23 10:49 | DISCH ---
ADMISSION DIAGNOSES: 1. Chronic cholecystitis. 2. Cholelithiasis status post gallstones pancreatitis. 3. Hypothyroidism. 4. Irregular heart beat. 5. Seasonal allergies. 6. Unspecified asthma. 7. Anxiety. 8. Chronic obstructive pulmonary disease. 9. Depression. 10.Gastroesophageal reflux disease. DISCHARGE DIAGNOSES: 1. Diagnostic laparoscopy with;. a. Cholecystectomy. b. Drainage of fluid collection adjacent to the gallbladder and duodenum. c. Repair of incarcerated umbilical hernia. POSTOPERATIVE DIAGNOSES: 1. Chronic cholecystitis. 2. Cholelithiasis status post gallstones pancreatitis with residual inflammatory fluid collection around the gallbladder and duodenum. 3. Incarcerated umbilical hernia. Date of procedure 04/22/2020. HISTORY: Paola Tamayo is a 64-year-old female with cholecystitis and cholelithiasis which caused pancreatitis. After preoperative evaluation and discussion of possible risks and possible complications, she wished to proceed with surgical procedure. HOSPITAL COURSE: Paola had her surgery on 04/22/2020. She had no operative complications. On postoperative day #1, she was able to be discharged to home. PHYSICAL EXAMINATION: GENERAL: Paola is a pleasant 64-year-old female. VITAL SIGNS: Height is 5 feet 2 inches, weight is 229 pounds 4.8 ounces. BMI is 41.9. TPR is 97.3, 73, 17. Blood pressure 125/66. HEENT: Negative. NECK: Supple. HEART: Regular rate and rhythm. LUNGS: Clear. ABDOMEN: Dressings dry and intact. Abdominal binder is on. JASON drain is draining serosanguineous drainage. This will be discontinued prior to discharge. EXTREMITIES: Without peripheral edema. DISPOSITION: Discharged to home. CONDITION: Stable and improving. FOLLOWUP: Appointment with Sury Higgins PA-C, on 05/02/2020 at 10 a.m. HOME MEDICATIONS: [place] 5/325 mg 1 to 2 tablets every 6 hours p.r.n. pain, #42. To resume home medications; Synthroid 125 mcg p.o. daily, lorazepam 0.5 mg p.o. q.6 hours p.r.n., Cortisporin Otic suspension 4 drops in each ear 3 times a day, Lexapro 20 mg daily, vitamin B12 50 mcg p.o. daily, vitamin D3 4000 International Units daily, Symbicort inhaler 2 puffs b.i.d., aspirin 81 mg p.o. daily, albuterol inhaler every 6 hours p.r.n., Combivent Respimat 1 puff inhalation q.i.d., vitamin D2 50,000 units Wednesday, Wednesday, Wednesday, triamcinolone cream 1 applicator b.i.d., milk of magnesia 30 mL to take 1 daily p.r.n. constipation, 2 were sent home with the patient. DIET: Regular diet as tolerated. Drink 8 to 10 glasses of water a day. ACTIVITY: No lifting over 10 pounds for 2 weeks. Walk at least 6 times daily inside your home. Driving: Do not drive for 1 week or while on narcotic pain medication. Shower/bathing: May shower. Keep operative site, wound site clean and dry. Wear abdominal binder for 2 weeks and then as tolerated. Notify provider if any fever, increased pain, swelling, redness, drainage, nausea, or vomiting. SPECIAL INSTRUCTION: Use incentive spirometer 10 times every hour while awake for 1 week. /[id number]
--- NOTE | 2020-04-29 12:00 | OR ---
DATE OF PROCEDURE: 04/22/2020 SURGEON: Emmett Tinajero MD PREOPERATIVE DIAGNOSIS: Chronic cholecystitis and cholelithiasis, status post gallstone pancreatitis. POSTOPERATIVE DIAGNOSES: 1. Chronic cholecystitis and cholelithiasis, status post gallstone pancreatitis with residual inflammatory fluid collection adjacent to gallbladder and duodenum. 2. Incarcerated umbilical hernia. OPERATIVE PROCEDURE: Diagnostic laparoscopy with: 1. Cholecystectomy (91303). 2. Drainage of inflammatory fluid collection adjacent to gallbladder and duodenum (57719). 3. Repair of incarcerated umbilical hernia (61050). ANESTHESIA: General. TOBACCO WEIGHER: Sury Higgins PA-C. INDICATIONS FOR PROCEDURE: This is a 64-year-old, several weeks status post episode of gallstone pancreatitis. In the interim, the patient developed COVID infection, so the cholecystectomy was deferred to this time. At this point, the patient appears to be clinically well recovered from the COVID infection and plan is to do the cholecystectomy. Potential risks of the procedure including bleeding infection, injury to underlying viscera such as common bile duct. Possibility of stones migrating into the common bile duct, either resulting in need for additional procedures for correction and/or an additional episode of pancreatitis were gone over along with the remote possibility of cardiopulmonary, septic, or hemorrhagic complications leading to , and the patient wishes to proceed. DETAILS OF PROCEDURE: The patient was taken to the operating room and placed in a supine position. After general endotracheal anesthesia was induced, the abdomen was prepped and draped. The patient was noted to have a moderate-sized umbilical hernia present. Transverse infraumbilical incision was made and the incarcerated fatty tissue was excised. This then allowed placement of the 12 mm trocar through the hernia defect and the peritoneal cavity was inflated to 15 mmHg pressure with CO2 and the laparoscope was reinserted. No underlying trocar insertion site injuries were seen. Following this, a 12 mm epigastric trocar along with a single 5 mm right abdominal trocar were placed and the upper abdomen examined. As one elevated the gallbladder, there was a thinly purulent fluid present in the area of the gallbladder neck and adjacent to the duodenum extending somewhat posterior to the gallbladder and behind the liver. This was associated with marked edema and some redness of the peritoneum in that area. This appeared to be an inflammatory fluid collection with or without infection. The fluid was evacuated at this point and cultures obtained. The gallbladder itself was noted to be white and thick-walled, consistent with ongoing chronic cholecystitis. The gallbladder was retracted anteriorly and laterally, and dissection began on the gallbladder neck. This was continued around the gallbladder neck and cystic duct junction. This was fairly widened. The cystic artery adjacent to this was identified and the cystic duct adjacent to the gallbladder was then divided with a COLE purple load as well as in the cystic artery divided with a COLE hansen load. The gallbladder was then dissected off the gallbladder bed using Harmonic scalpel and delivered through the epigastric trocar site and noted to contain multiple small stones within it. At this point, no further problems were noted. Sebastian-Thornton drain was taken out through the right lateral trocar site. The scope was removed to the epigastric site and laparoscopic repair of the umbilical hernia was then accomplished by placing a series of 0 Vicryl sutures through the fascia and using laparoscopic suturing device. These were placed such that the hernia would be closed with a transverse orientation. Once these were in place, the peritoneal cavity was then deflated with removal of the remaining epigastric trocar and the fascial sutures tied. The skin at each incision was closed with 4-0 Vicryl stitch and the drain affixed with 4-0 Vicryl stitch as well. The patient was taken to the recovery room in satisfactory condition. Physician assistant store leader, Sury Higgins, played an essential role in assisting in this case, helping to position the patient, retract structures as needed as well as cutting and suturing as indicated. Her presence improved patient safety and decreased the operative time. Emmett Tinajero MD /[id number]
== END 2020-04-23 10:00 | disposition home or self-care (01) ==
LOC: JP.SDS 06:49 → JP.MS 11:20 → JP.SDS 04-23 10:00
PROVIDERS: ATTEND Surgery
DX: K81.1 Chronic cholecystitis (principal); K42.0 Umbilical hernia with obstruction, without gangrene; J44.9 Chronic obstructive pulmonary disease, unspecified; E03.9 Hypothyroidism, unspecified; K21.9 Gastro-esophageal reflux disease without esophagitis; I10 Essential (primary) hypertension; E11.9 Type 2 diabetes mellitus without complications; E55.9 Vitamin D deficiency, unspecified; E66.01 Morbid (severe) obesity due to excess calories; Z68.41 Body mass index [BMI] 40.0-44.9, adult; Z79.899 Other long term (current) drug therapy; Z79.82 Long term (current) use of aspirin; Z79.890 Hormone replacement therapy; Z88.5 Allergy status to narcotic agent
CPT/HCPCS: 36415; 47562; 49653; 80053; 82150; 83690; 83735; 84100; 84443; 85025; 85027; 94640; A9270; C9113; J0171; J0330; J0690; J1100; J2185; J2405; J2704; J2710; J2795; J2930; J3010; J3490; J7050; J7121; J7620-GY

== ENCOUNTER 2022-05-04 17:57 | Inpatient (IN) | payer MEDICARE, MEDICAID ==
[2022-05-04 18:47] LABS: ESTIMATED GFR 80 mL/min (>60)
[2022-05-04] MEDS ORDERED: Albuterol/Ipratropium 3.0-0.5 MG/3 ML Neb Soln NEB ONE (18:47)
[2022-05-04 19:13] LABS: CORONAVIRUS COVID-19 NAA POSITIVE (NEGATIVE)
[2022-05-04] MEDS ORDERED: Dexamethasone 4 MG/ML SDV IVPUSH STA (19:25)
[2022-05-04] MEDS ORDERED: LORazepam 1 MG Tab PO ONE (20:22)
[2022-05-04] MEDS: Ciprofloxacin 500 MG Tab PO SCH (21:02)
[2022-05-04] MEDS ORDERED: ALBUTEROL SULFATE AD IH SCH (21:32)
[2022-05-04] MEDS ORDERED: Morphine 2 MG/ML SYRINGE IVPUSH PRN (21:32)
[2022-05-04] MEDS ORDERED: Formoterol/Mometasone 200-5 MCG 8.8 GM Inhaler IH SCH (21:32)
[2022-05-04] MEDS ORDERED: Acetaminophen 325 MG Tab PO PRN (21:32)
[2022-05-04] MEDS ORDERED: Ondansetron 4 MG Tab.DIS PO PRN (21:32)
[2022-05-04] MEDS ORDERED: Enoxaparin 40 MG/0.4 ML Syringe SUBCUT SCH (21:32)
[2022-05-04] MEDS ORDERED: REMDESIVIR 200 MG in Sodium Chloride 0.9% 250 ML IV ONE (21:32)
[2022-05-04] MEDS ORDERED: Docusate Sodium 100 MG Cap PO PRN (21:32)
[2022-05-04] MEDS ORDERED: LORazepam 0.5 MG Tab PO PRN (21:32)
[2022-05-04] MEDS ORDERED: oxyCODONE 5 MG Tab PO PRN (21:32)
[2022-05-04] MEDS ORDERED: Acetaminophen 500 MG Tab PO ONE (21:57)
[2022-05-04] MEDS ORDERED: IPRATROPIUM IH SCH (22:00)
[2022-05-04] MEDS ORDERED: Acetaminophen 500 MG Tab ONE (22:00)
[2022-05-04] MEDS ORDERED: ALBUTEROL IH SCH (22:00)
[2022-05-04] MEDS ORDERED: [UNRECOGNIZED DRUG - OTHER] IH SCH (22:00)
[2022-05-04] MEDS: Rosuvastatin 10 MG Tab PO SCH (22:57)
[2022-05-05] MEDS: Acetaminophen 325 MG Tab PO PRN ×2 (05:13→15:13)
[2022-05-05] MEDS: Albuterol 90 MCG/6.7 GM Inhaler INH SCH ×3 (08:27→21:33)
[2022-05-05] MEDS: Formoterol/Mometasone 200-5 MCG 8.8 GM Inhaler IH SCH ×2 (08:27→21:32)
[2022-05-05] MEDS: Cholecalciferol (Vitamin D3) 25 MCG Tab PO SCH ×2 (08:29→08:45)
[2022-05-05] MEDS: Escitalopram 20 MG Tab PO SCH (08:30)
[2022-05-05] MEDS: Levothyroxine 25 MCG Tab PO SCH (08:30)
[2022-05-05] MEDS: Levothyroxine 112 MCG Tab PO SCH (08:30)
[2022-05-05] MEDS: Ciprofloxacin 500 MG Tab PO SCH ×2 (08:31→21:31)
[2022-05-05] MEDS: Dexamethasone 4 MG/ML SDV IVPUSH SCH (08:31)
[2022-05-05] MEDS ORDERED: Cyanocobalamin (Vitamin B12) 1,000 MCG Tab PO SCH (09:00)
[2022-05-05] MEDS ORDERED: Non-Formulary Medication 1 Each (Cyanocobalamin (Vitamin B-12) [Vitamin B-12] 50 MCG Table PO SCH (09:00)
[2022-05-05] MEDS: Benzocaine/Cetylpyridinium/Menthol Lozenge MUCMEM PRN (11:25)
[2022-05-05] MEDS: Rosuvastatin 10 MG Tab PO SCH (21:31)
[2022-05-05] MEDS: Enoxaparin 40 MG/0.4 ML Syringe SUBCUT SCH (21:33)
[2022-05-05] MEDS: REMDESIVIR 100 MG in Sodium Chloride 0.9% 100 ML IV SCH (21:34)
[2022-05-06] MEDS: Formoterol/Mometasone 200-5 MCG 8.8 GM Inhaler IH SCH ×2 (07:22→20:34)
[2022-05-06] MEDS: Albuterol 90 MCG/6.7 GM Inhaler INH SCH ×3 (07:23→20:33)
[2022-05-06] MEDS: Levothyroxine 112 MCG Tab PO SCH (07:31)
[2022-05-06] MEDS: Levothyroxine 25 MCG Tab PO SCH (07:31)
[2022-05-06] MEDS: Dexamethasone 4 MG/ML SDV IVPUSH SCH (08:46)
[2022-05-06] MEDS: Ciprofloxacin 500 MG Tab PO SCH ×2 (08:46→20:35)
[2022-05-06] MEDS: Cholecalciferol (Vitamin D3) 25 MCG Tab PO SCH (08:47)
[2022-05-06] MEDS: Escitalopram 20 MG Tab PO SCH (08:47)
[2022-05-06] MEDS: Acetaminophen 325 MG Tab PO PRN (14:20)
[2022-05-06] MEDS: Rosuvastatin 10 MG Tab PO SCH (20:34)
[2022-05-06] MEDS: Enoxaparin 40 MG/0.4 ML Syringe SUBCUT SCH (20:36)
[2022-05-06] MEDS: REMDESIVIR 100 MG in Sodium Chloride 0.9% 100 ML IV SCH (20:36)
[2022-05-06] MEDS: Benzocaine/Cetylpyridinium/Menthol Lozenge MUCMEM PRN (21:59)
[2022-05-07] MEDS: Albuterol 90 MCG/6.7 GM Inhaler INH SCH (07:24)
[2022-05-07] MEDS: Formoterol/Mometasone 200-5 MCG 8.8 GM Inhaler IH SCH (07:24)
[2022-05-07] MEDS: Ciprofloxacin 500 MG Tab PO SCH (08:32)
[2022-05-07] MEDS: Cholecalciferol (Vitamin D3) 25 MCG Tab PO SCH (08:32)
[2022-05-07] MEDS: Levothyroxine 112 MCG Tab PO SCH (08:33)
[2022-05-07] MEDS: Levothyroxine 25 MCG Tab PO SCH (08:33)
[2022-05-07] MEDS: Escitalopram 20 MG Tab PO SCH (08:33)
[2022-05-07] MEDS: Dexamethasone 4 MG/ML SDV IVPUSH SCH (08:34)
== END 2022-05-07 12:08 | disposition home or self-care (01) | DRG 177 ==
LOC: JP.ED 17:57 → JP.ICU 20:31
PROVIDERS: ADMIT Hospitalist; ATTEND Hospitalist
PROC: 8E0ZXY6 Isolation (ICD-10-PCS; principal; 2022-05-04)
PROC: XW033E5 Introduction of Remdesivir Anti-infective into Peripheral Vein, Percutaneous Approach, New Technology Group 5 (ICD-10-PCS; 2022-05-04)
PROC: 3E0333Z Introduction of Anti-inflammatory into Peripheral Vein, Percutaneous Approach (ICD-10-PCS; 2022-05-04)
PROC: 5A09357 Assistance with Respiratory Ventilation, Less than 24 Consecutive Hours, Continuous Positive Airway Pressure (ICD-10-PCS; 2022-05-04)
DX: U07.1 COVID-19 (principal); J96.01 Acute respiratory failure with hypoxia; N30.00 Acute cystitis without hematuria; F41.9 Anxiety disorder, unspecified; J44.9 Chronic obstructive pulmonary disease, unspecified; J44.1 Chronic obstructive pulmonary disease with (acute) exacerbation; F32.A Depression, unspecified; I10 Essential (primary) hypertension; K21.9 Gastro-esophageal reflux disease without esophagitis; E03.9 Hypothyroidism, unspecified; E66.9 Obesity, unspecified; Z68.32 Body mass index [BMI] 32.0-32.9, adult; Z98.890 Other specified postprocedural states; Z87.891 Personal history of nicotine dependence; Z79.52 Long term (current) use of systemic steroids; Z79.82 Long term (current) use of aspirin; Z88.5 Allergy status to narcotic agent; Z86.16 Personal history of COVID-19; Z79.899 Other long term (current) drug therapy; Z99.81 Dependence on supplemental oxygen
CPT/HCPCS: 0241U; 36415; 36600; 71045; 71045-26; 80048; 80053; 80076; 81001; 82150; 82550; 82728; 82803; 83605; 83615; 83690; 84145; 85025; 85379; 85610; 85730; 86140; 87040; 87081; 87086; 87088; 87186; 87880-QW; 94640; 94660; 96374; 99222; 99232; 99238; 99284; 99285-25; A9270-GY; J1100; J1650; J3490; J7050; J7620

== ENCOUNTER 2022-07-01 21:59 | Emergency (ER) | payer MEDICARE, MEDICAID | END 2022-07-01 23:22 | disposition home or self-care (01) | LOC: JP.ED 21:59 | DX: J44.1 Chronic obstructive pulmonary disease with (acute) exacerbation (principal); R09.02 Hypoxemia; G47.33 Obstructive sleep apnea (adult) (pediatric); E03.9 Hypothyroidism, unspecified; E66.9 Obesity, unspecified; I10 Essential (primary) hypertension; Z68.41 Body mass index [BMI] 40.0-44.9, adult; Z86.16 Personal history of COVID-19; Z79.82 Long term (current) use of aspirin; Z79.899 Other long term (current) drug therapy; Z88.5 Allergy status to narcotic agent | CPT/HCPCS: 99284 ==